=== PATIENT | female | born 1935 | race Caucasian/White ===

== ENCOUNTER 2017-08-11 08:11 | Inpatient (IN) | payer MEDICARE, OTHER, SELFPAY ==
[2017-08-11] VITALS (14 sets, daily range): BP systolic 107–126; BP diastolic 49–93; PULSE 87–125; RESP 13–27; TEMP 36.3–36.5; O2SAT 94–97; BMI 24.2; BMI 23.4
--- NOTE | 2017-08-11 08:27 | EKG12_ITS ---
Test Reason : ILLNESS Blood Pressure : / mmHG Vent. Rate : 096 BPM Atrial Rate : 075 BPM P-R Int : 000 ms QRS Dur : 142 ms QT Int : 366 ms P-R-T Axes : 000 -41 138 degrees QTc Int : 462 ms Atrial fibrillation Left axis deviation Left bundle branch block Abnormal ECG Confirmed by SUNDAR HENRY, LUIS ALFREDO ([id number]), features editor KIM PEREZ ([id number]) on 08/15/2017 1:21:11 PM Referred By: LESA Confirmed By:LUIS ALFREDO KWOK MD
--- NOTE | 2017-08-11 08:30 | RAD_ITS ---
STUDY: X-RAY CHEST REASON FOR EXAM: Female, 81 years old. Chest pain. History of uterine carcinoma. TECHNIQUE: Single AP portable view of the chest. COMPARISON: Comparison is made with prior study dated October 23, 2012. FINDINGS: EKG electrodes are seen. There now is evidence of a vascular congestion and mild degree of CHF. Mild increased markings are seen at the lung bases suggestive of atelectasis. There is blunting of both costophrenic angles. There is mild cardiac enlargement. Normal mediastinum and drake. Normal visualized pulmonary arteries. Normal visualized aortic arch and descending thoracic aorta. There is a levoscoliosis of the thoracic spine. Normal visualized ribs, clavicles, and shoulders. There is no demonstrated abnormality of the visualized soft tissue structures of the upper abdomen. RAD/Chest 1 View (Portable) IMPRESSION: Findings in keeping with a mild degree of CHF. Mild cardiomegaly. Electronically Signed: Luis Chaudhry MD at 8:56 EST Tel [phone], Service support ,
--- NOTE | 2017-08-11 08:33 | ED.DCSUM_ITS ---
- ER Visit Summary Date of Service: 08/11/17 Chief Complaint: Nausea vomiting and diarrhea History of Present Illness: The patient is a 81 F states she has not felt well for 1 week. Her primary care physician Dr. Geoffrey Jesus felt like she may have been in Atrial fib and started her on Eliquis. She states since that time she has not felt well. Last evening or this morning she started having nausea, vomiting and diarrhea. Denies any melena or hematemesis. Denies any fever. Denies any abdominal pain. She has had mild shortness of breath. She denies any chest pain or fever. Physical Examination: Older female no acute distress. Vital signs are stable she is tachycardic. Clinically she does look dehydrated. She does not look septic. She does not look toxic. H EENT exam dry mucous membranes. Neck nontender no lymphadenopathy. Lungs clear to auscultation bilaterally. Heart tachycardic and irregular. Abdomen is soft and nontender. Positive bowel sounds. She is moving all 4 extremities. They are neurovascularly intact. Nontender without edema. Neurologically she is awake and alert. Without focal motor deficits. Normal speech. Test Results: EKG is A. fib rate of 96 with left bundle branch block. Chest x- ray shows cardiomegaly with mild CHF. Mesenteric reflux was noted CBC shows a white count of 7. H&H 1136 she does have a baseline anemia with a hemoglobin average around 9. Electrolytes are unremarkable. Gap is 11. BUN 29 creatinine 1.36. Troponin and TSH are both normal. Repeat exam the patient is doing well currently at 09 35. Evaluate I will speak to the hospitalist about admission. Emergency Department Course and Treatment: Female with nausea, vomiting diarrhea which very well may be secondary to acute gastroenteritis which is started in the last 24 hours. However she is also not felt well for a week and she may have new onset A. fib. We treated with 1 L normal saline and IV Zofran for her nausea. Treatment Plan: The hospital is patient be admitted to the PCU for new onset A. fib and CHF. Disposition: Admitted Impression: Acute nausea, vomiting and diarrhea secondary to acute viral gastroenteritis New onset atrial fibrillation CHF This note was generated with [employer] dictation software. It may contain incorrect words, spelling, and punctuation that were not noted in review of the chart prior to signing ED Disposition - Plan for ED Patient: Chief Complaint: General Illness Referrals: Geoffrey Jesus MD [Primary Care Provider] -
[2017-08-11 08:40] LABS: Absolute Lymphocyte Count 0.91 X10^3/ul (0.83-4.51); Basophil# 0.03 X10^3/uL; Basophil% 0.4 % (0-1); Eosinophils% 2.8 % (0-5); Hematocrit 36.3 % (37-47); Hemoglobin 11.2 g/dl (12.0-15.0); Lymphocyte # 0.91 X10^3/ul (4.0); Lymphocyte % 12.7 % (19-41); Mean Corp Hgb Conc 30.9 g/gl (32-36); Mean Corpuscular Hgb 29.2 pg (27.0-32.0); Mean Corpuscular Volume 94.8 fL (81-99); Mean Platelet Vol. 10.3 fl (6.2-12.0); Monocyte# 0.94 X10^3/uL; Monocyte% 13.2 % (0-10); Neutrophil # 5.04 X10^3/uL (2.7-7.7); Neutrophil % 70.6 % (47-70); POSITIVE COUNT NO; POSITIVE DIFFERENTIAL NO; POSITIVE MORPHOLOGY NO; Platelet Count 237 K/mm3 (150-450); RBC Distribution Width CV 14.7 % (11.6-14.6); RBC Distribution Width SD 50.4 fl (35.1-43.9); Red Blood Count 3.83 M/mm3 (4.2-5.4); White Blood Count 7.1 K/mm3 (4.4-11.0)
[2017-08-11] MEDS: 0.9% Normal Saline 1,000 ML 1000 ML IV (08:43)
[2017-08-11] MEDS: Ondansetron 4 MG/2 ML Vial IV (08:43)
--- NOTE | 2017-08-11 09:00 | ED.RN ---
IV FLUIDS TURNED DOWN TO 100ML/HR PER DR MCFADDEN REQUEST
[2017-08-11 09:02] LABS: Anion Gap 11 (5-15); BUN 29 mg/dL (7-18); BUN/Creat Ratio 21.3 RATIO (10-20); Calcium,Total 8.5 mg/dL (8.5-10.1); Chloride 109 mmol/L (98-107); Creatinine, Serum 1.36 mg/dL (0.55-1.02); EST Glomerular Filtration Rate 40 mL/min (>60); Est Glom Filt Rate - Afr Amer 48 mL/min (>60); Estimated Creatinine Clearance 29.86 ml/min; Glucose 184 mg/dL (74-106); Potassium 4.9 mmol/L (3.5-5.1); Sodium Level 141 mmol/L (136-145); Thyroid Stim Hormone (TSH) 0.74 uIU/mL (0.358-3.74)
[2017-08-11] MEDS: 0.9% Normal Saline 250 ML IV.SOLN. 100 ML IV (09:09)
--- NOTE | 2017-08-11 09:56 | HP.PCM_ITS ---
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 Bleeding per rectum (Chronic) Collagenous colitis (Chronic) Anemia (Chronic) Allergies scopolamine Adverse Reaction (Verified 08/11/17 08:16) confusion Home Medications: Ambulatory Orders Medication Instructions Recorded Chlorthalidone [Hygroton] 25 mg PO DAILY PRN PRN 03/26/16 Cholecalciferol (VIT D3) [Vitamin 4,000 unit PO DAILY 03/26/16 D3] Fluoxetine [Prozac] 40 mg PO DAILY 03/26/16 Latanoprost 0.005% [Xalatan 1 drop EACH EYE QHS 03/26/16 Opthalmic] Potassium Citrate [Potassium 10 meq PO DAILY 03/26/16 Citrate ER] Timolol 0.5% [Timoptic] 1 drop EACH EYE QHS 03/26/16 Levothyroxine [Synthroid] 112 mcg PO DAILY 04/26/16 Bisacodyl [Dulcolax] 10 mg RECTAL DAILY PRN #30 suppos. 06/07/16 Hydrocodone Bitart/Apap 5-325 1 - 2 tablet PO Q6H PRN PRN #30 06/07/16 [[place] 5/325] tablet Lorazepam [Ativan] 1 mg PO BID #30 tablet 06/07/16 Nystatin Powder [Mycostatin Powder] 1 applic TOPICAL BID@0600,2200 #1 06/07/16 bottle Potassium Chloride [K-Dur] 10 meq PO DAILYCM #30 tablet 06/07/16 Ammonium Lactate [Amlactin] 3 gm TP DAILY 08/11/17 Apixaban [Eliquis] 2.5 mg PO BID 08/11/17 Bupropion HCl [Bupropion HCl Sr] 150 mg PO DAILY 08/11/17 Iron Polysaccharide Complex 325 mg PO DAILYCM 08/11/17 [Ferrex 150] Levocetirizine Dihydrochloride 5 mg PO DAILY PRN PRN 08/11/17 [Xyzal] Metoprolol Tartrate [Lopressor 25 mg PO BID 08/11/17 (Beta Marivel)] Triamcinolone Acetonide 15 gm TP BID PRN PRN 08/11/17 Surgical History: cataract - Bilateral., hysterectomy, total hip arthroplasty - Right., - - Breast biopsy Psychiatric History: No pertinent psych hx APPLICATIONS INTERN History: No pertinent APPLICATIONS INTERN history Smoking Status: Never smoker - *Family History Maternal History Items: No pertinent history Paternal History Items: No pertinent history - Physical Exam Vital Signs Temp Pulse Resp BP Pulse Ox 97.6 F L 93 13 110/87 H 96 08/11/17 08:13 08/11/17 09:12 08/11/17 09:12 08/11/17 09:12 08/11/17 09:12 Oxygen Delivery Method Room Air Weight: 149 lb 14.629 oz Body Mass Index (BMI) 24.2 Laboratory Tests Past 24 Hrs 08/11/17 08/11/17 08:27 08:27 WBC 7.1 RBC 3.83 L Hgb 11.2 L Hct 36.3 L MCV 94.8 MCH 29.2 MCHC 30.9 L RDW 14.7 H RDW Differential 50.4 H Plt Count 237 MPV 10.3 Immature Gran % (Auto) 0.300 Neut % (Auto) 70.6 H Lymph % (Auto) 12.7 L [place] % (Auto) 13.2 H Eos % (Auto) 2.8 Baso % (Auto) 0.4 Absolute Neuts (auto) 5.0 Absolute Lymphs (auto) 0.91 Total Counted Not Reportable Sodium 141 Potassium 4.9 Chloride 109 H Carbon Dioxide 21.0 Anion Gap 11 BUN 29 H Creatinine 1.36 H Estim Creat Clear Calc 29.86 Est GFR (MDRD) Af Amer 48 L Est GFR (MDRD) Non-Af 40 L BUN/Creatinine Ratio 21.3 H Glucose 184 H Calcium 8.5 Troponin I < 0.02 TSH 0.74
[2017-08-11] MEDS: Levothyroxine 100 MCG Tablet PO (11:45)
[2017-08-11] MEDS: APIXABAN 2.5 MG TABLET PO ×2 (11:45→22:16)
[2017-08-11] MEDS: LORazepam 1 MG Tablet PO ×2 (11:45→22:20)
[2017-08-11] MEDS: FLUoxetine 20 MG Capsule 40 MG PO (11:45)
[2017-08-11] MEDS: Metoprolol Tartrate 25 MG Tablet PO ×2 (11:45→22:15)
--- NOTE | 2017-08-11 16:58 | PCM.HP.STD ---
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 The patient is a 81 year old F who presents to the emergency room with shortness of breath, generalized weakness, diarrhea, nausea/vomiting. Patient states she has had generalized weakness for the most part of this winter. She is independent at home and states she has had difficulty running errands and doing other activities she normally does due to weakness. Patient was at primary care physician office approximately a week ago for routine visit when she was diagnosed with atrial fibrillation. Dr. Jesus, her primary care physician started her on Eliquis and metoprolol. Her rate was controlled at that time. Patient states she has been symptomatic since her diagnosis with increased weakness and shortness of breath. She complains of associated palpitations. She developed diarrhea, N/V this morning. She denies blood in stool. Complains of poor appetite which has been ongoing. Patient states she has had diarrhea in the past with blood thinners which she was prescribed following joint surgery. Patient states she has chronic anemia in which an etiology has not been determined. She states she required a transfusion following hip surgery in the past. She had colonoscopy which did not show any source of bleeding. She was diagnosed with colitis. Patient states she has intermittent diarrhea chronically. She denies chest pain. Denies fever, chills. Denies recent illness. 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 06/07/16 Potassium Chloride [K-Dur] 10 meq PO DAILYCM #30 tablet 06/07/16 Apixaban [Eliquis] 2.5 mg PO BID 08/11/17 Bupropion HCl [Bupropion HCl Sr] 150 mg PO BID 08/11/17 Iron Polysaccharide Complex 325 mg PO DAILYCM 08/11/17 [Ferrex 150] Levocetirizine Dihydrochloride 5 mg PO DAILY PRN PRN 08/11/17 [Xyzal] Lorazepam [Ativan] 1.5 mg PO BID PRN PRN 08/11/17 Metoprolol Tartrate [Lopressor 25 mg PO BID 08/11/17 (Beta Marivel)] Surgical History: cataract - Bilateral., hysterectomy, total hip arthroplasty - Right., - - Breast biopsy Psychiatric History: No pertinent psych hx EN[employer]CHITECT History: No pertinent ENTER[employer]ITY ARCHITECT history Lives: Alone Smoking Status: Never smoker Tobacco Use: Non-smoker Alcohol: Rare Drugs: None - *Family History Maternal History Items: Heart Disease Paternal History Items: Pulmonary Disease Review of Systems Constitutional: Reports: Weakness. Denies: Chills, Fever, Weight Change HEENT: Denies: Head Aches, Sinus Congestion, Sinus Drainage Cardiovascular: Reports: Palpitations. Denies: Chest Pain, Edema, Light Headedness, Syncope Respiratory: Reports: Shortness of Breath. Denies: Cough, Sputum production, Wheezing Gastrointestinal: Reports: Diarrhea, Nausea, Vomiting. Denies: Abdominal Pain, Constipation, Melena Genitourinary: Denies: Dysuria Musculoskeletal: Denies: Joint Pain, Joint Tenderness Skin: Denies: Rash, Wounds Neurological: Denies: Numbness, Tingling, Focal weakness Psychiatric: Reports: Anxiety. Denies: Depression, Homicidal Ideations, Suicidal Ideations Hematologic/ Lymphatic: Denies: Easy Bruising, Easy Bleeding VTE Information - Inpt Only VTE Present on Admission: No VTE Mechan Device Prophylaxis: None VTE Pharm Prophylaxis ordered?: Yes Patient Problems: Active and Suspected Problems Atrial fibrillation (Acute) - Physical Exam General: Alert, Oriented x3, Cooperative, No apparent distress HEENT: Atraumatic, PERRLA, EOMI, Normocephalic Oral: Dry Mucosa Neck: Supple, No JVD, Negative Carotid Bruits Lungs: Clear to auscultation, Diminished Cardiovascular: Regular rate, Normal S1, Normal S2, No murmurs, - - a.fib Abdomen: Bowel Sounds Present, Soft, Non Tender, Non-Distended Extremities: No clubbing, No cyanosis, No edema, Capillary Refill Less than 3 Seconds Skin: No rashes, No breakdown Musculoskeletal: No Tenderness to Palpation of Joints or Extremities Neurological: Cranial nerves II-XII grossly intact Psych/Mental Status: Normal Affect, Appropriate Vital Signs Temp Pulse Resp BP Pulse Ox 97.7 F L 98 18 117/49 L 97 08/11/17 16:45 08/11/17 16:45 08/11/17 16:45 08/11/17 16:45 08/11/17 16:45 Oxygen Delivery Method Room Air Weight: 65.9 kg Body Mass Index (BMI) 23.4 Intake and Output for Last 24 Hours 08/09/17 08/10/17 08/11/17 23:59 23:59 23:59 Intake Total 745 / 745 Balance 745 / 745 Assessment/Plan Active and Suspected Problems Atrial fibrillation (Acute) 1. New diagnosis atrial fibrillation-diagnosed by PCP approximately 1 week ago. Continue metoprolol and Eliquis. Patient was to follow-up with Dr. Mistry in the office today. Cardiology consulted. Rate is controlled. Patient had previous echocardiogram September 2012 which showed an EF of 60%. Patient had stress test February 2016 preoperatively which was normal. Repeat echocardiogram. Check BNP. Chest x-ray on admission showed mild degree of CHF. Patient's lungs are clear, no edema. TSH WNL. Patient states she has had diarrhea with blood thinners in the past when she has taken them post-operatively. Unsure if this is related or coincidence given history of intermittent diarrhea/hx of colitis. 2. Suspected acute viral gastroenteritis-IV fluids. Advance diet as tolerated. Zofran as needed for nausea. Stool for enteric pathogen. Patient has not had further diarrhea since this morning. Denies nausea, emesis at this time. 3. Chronic normochromic normocytic anemia-hemoglobin stable. Baseline hemoglobin appears to be 8-9. Hemoglobin currently 11.2. Continue iron supplementation. Check stool for occult blood. 4. Elevated creatinine secondary to dehydration as a result of #2-IV fluids, monitor BMP. 5. Elevated glucose- check hemoglobin HA1C. 5. History of collagenous colitis-history of intermittent diarrhea. Begin IV famotidine. Recommend discharge on PPI. 6. Hypothyroidism-continue Synthroid. TSH within normal limits. 7. Depression/anxiety-continue bupropion, fluoxetine, lorazepam regimen. Recommend tapering Ativan at discharge with eventual discontinuation. 8. Generalized weakness-PT/OT. Patient and family concerned for patient to return home alone. Consult case management. 9. History of TIA DVT prophylaxis-Beryl. This patient was seen by CINTHYA Benjamin under the supervision of Dr. Virgen.
--- NOTE | 2017-08-11 17:23 | ECHOD_ITS ---
Reason For Study: A. fib/flutter Procedure This was a 2D Doppler, Color Flow transthoracic echocardiogram. The exam was of adequate technical quality. Exam performed in department. Left Ventricle Normal LV size. Moderate segmental systolic dysfunction (see wall motion). The estimated ejection fraction is 30 %. Unable to assess diastolic dysfunction. Anterio-Basal: Hypokinetic. Infero-Basal: Akinetic. Basal inferoseptal: Hypokinetic. Basal anteroseptal: Hypokinetic. Mid-Anterior : Hypokinetic. Mid-Lateral : Hypokinetic. Mid-Posterior: Hypokinetic. Mid-Inferior: Akinetic. Mid- inferoseptal : Hypokinetic. Mid-anteroseptal : Hypokinetic. [place] : Hypokinetic. Right Ventricle Normal RV size. Normal systolic function. Atria The left atrium is moderately enlarged. The right atrium is moderately enlarged. No doppler evidence for ASD. Mitral Valve There is no mitral annular calcification. Mild diffuse mitral valve thickening. Mild papillary muscle dysfunction of the mitral valve. Mild-Moderate (1-2+) mitral valve insufficiency. Tricuspid Valve Normal tricuspid valve. Moderate (2+) tricuspid valve insufficiency. Right ventricular systolic pressure estimated to be 38 mmHg. Aortic Valve Trisinus/trileaflet aortic valve. Mild diffuse aortic valve thickening. Mild focal aortic valve calcification. Mild (1+) aortic valve insufficiency. Pulmonic Valve The pulmonic valve is not well visualized. Great Vessels Normal sized aortic root. Pericardium/Pleural No pericardial effusion. Echolucency c/w a pleural effusion. MMode/2D Measurements & Calculations LVIDd: 4.4 cm IVSd: 1.1 cm Ao root diam: 3.1 cm LVIDs: 3.7 cm LVPWd: 1.0 cm LA dimension: 4.8 cm RVDd: 3.3 cm FS: 15.8 % LAV(MOD-bp): 84.3 ml LA A4 area: 23.9 cm2 RA A4 area: 24.1 cm2 LAV(MOD-bp) Indexed: 48.3 ml/m2 LAV(MOD-sp2): 84.9 ml LAV(MOD-sp4): 80.2 ml Doppler Measurements & Calculations MV E max edie: 93.8 cm/sec Ao V2 max: 125.2 cm/sec AI max edie: 411.7 cm/sec Ao max P.3 mmHg AI max P.9 mmHg AI dec slope: 281.6 cm/sec2 AI P1/2t: 428.2 msec LV V1 max: 68.5 cm/sec PA V2 max: 49.2 cm/sec TR max edie: 239.9 cm/sec LV V1 max P.9 mmHg TR max P.4 mmHg Interpretation Summary Moderate segmental systolic dysfunction (see wall motion). The estimated ejection fraction is 30 %. The left atrium is moderately enlarged. The right atrium is moderately enlarged. Mild diffuse mitral valve thickening. Mild papillary muscle dysfunction of the mitral valve. Mild-Moderate (1-2+) mitral valve insufficiency. Moderate (2+) tricuspid valve insufficiency. Mild diffuse aortic valve thickening. Mild focal aortic valve calcification. Mild (1+) aortic valve insufficiency. Echolucency c/w a pleural effusion. Right ventricular systolic pressure estimated to be 38 mmHg. Unable to assess diastolic dysfunction. Ordering Physician: CINTHYA Benjamin Referring Physician: Geoffrey Jesus Performed By: Christina Calderon RDCS
[2017-08-11] MEDS: 0.9% Normal Saline 1,000 ML 75 ML IV (17:39)
[2017-08-11 19:20] LABS: Hemoglobin A1c 5.8 % (4.2-6.3)
[2017-08-11 19:52] LABS: BNP,B-Type NATRIURETIC PEPTIDE 1957.8 pg/mL (0-100)
--- NOTE | 2017-08-11 19:58 | CON.PCM_ITS ---
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 Based upon her most recent visit from 2015 she underwent subsequent evaluation with a transthoracic echocardiogram. The left ventricle was thought to be normal with an LVEF of 65 % with mild left atrial enlargement, mild MR, mild TR, mild diffuse aortic valve thickening with trivial AI, trivial W[place], and estimated RV systolic pressure of 30 mmHg, and decreased diastolic compliance. She also had a pharmacologic stress nuclear imaging study. Based upon the report her myocardial perfusion appear to be within normal limits. Her gated LVEF was 75% . She required no further cardiac evaluation or care at that time. She was subsequently proceeding for right total knee plasty which she apparently accomplished with no obvious adverse cardiovascular events. She notes recently she was being evaluated by her primary care physician. Her heart rate was thought to be irregular. An ECG was obtained. She was told she was in atrial fibrillation. She was placed on medical management with beta blockers and anticoagulants. She was referred back to cardiology for additional evaluation and care. In the interim she states that she has had nausea and diarrhea. She also has noted progressive shortness of breath. She states her dyspnea appears to wax and wane whether she is resting or exerting. She has not had classic orthopnea or PND. She has not developed any peripheral pitting edema. She has denied any chest discomfort. There is been no obvious near syncope or syncope. She was subsequently evaluated in the emergency department for her aforementioned symptoms. She was placed in the hospital for further evaluation and care. Her initial cardiac enzyme is negative. Her ECG demonstrated atrial fibrillation with a left axis deviation and a left bundle branch block pattern. The chest x-ray was performed. She appeared to have mild increase in her pulmonary vascularity and mild blunting of her costophrenic angles. [] Past Medical History Allergies/Adverse Reactions: Allergies scopolamine Adverse Reaction (Verified 08/11/17 08:16) confusion Home Medications: Ambulatory Orders Medication Instructions Recorded Cholecalciferol (VIT D3) [Vitamin 4,000 unit PO DAILY 03/26/16 D3] Fluoxetine [Prozac] 40 mg PO DAILY 03/26/16 Latanoprost 0.005% [Xalatan 1 drop EACH EYE QHS 03/26/16 Opthalmic] Timolol 0.5% [Timoptic] 1 drop EACH EYE BID 03/26/16 Levothyroxine [Synthroid] 100 mcg PO DAILY 04/26/16 Bisacodyl [Dulcolax] 10 mg RECTAL DAILY PRN #30 suppos. 06/07/16 Potassium Chloride [K-Dur] 10 meq PO DAILYCM #30 tablet 06/07/16 Apixaban [Eliquis] 2.5 mg PO BID 08/11/17 Bupropion HCl [Bupropion HCl Sr] 150 mg PO BID 08/11/17 Iron Polysaccharide Complex 325 mg PO DAILYCM 08/11/17 [Ferrex 150] Levocetirizine Dihydrochloride 5 mg PO DAILY PRN PRN 08/11/17 [Xyzal] Lorazepam [Ativan] 1.5 mg PO BID PRN PRN 08/11/17 Metoprolol Tartrate [Lopressor 25 mg PO BID 08/11/17 (Beta Marivel)] Past Medical History (Chronic Problems): Chronic Problems Abnormal electrocardiogram (Chronic) LBBB Dyspnea (Chronic) Hypothyroidism (Chronic) Osteoarthritis of left knee (Chronic) Osteoarthritis of right knee (Chronic) History of colitis (Chronic) microscopic colitis on biopsy of prev. colonoscopy Bleeding per rectum (Chronic) Collagenous colitis (Chronic) Anemia (Chronic) Surgical History: cataract - Bilateral., hysterectomy, total hip arthroplasty - Right., - - Breast biopsy Psychiatric History: No pertinent psych hx HEALTH EDUCATION DIRECTOR History: No pertinent HEALTH EDUCATION DIRECTOR history - *Family History Maternal History Items: Heart Disease Paternal History Items: Pulmonary Disease Lives: Alone Smoking Status: Never smoker Tobacco Use: Non-smoker Alcohol: Rare Drugs: None Review of Systems - Review of Systems General: Denies: Fever, Night Sweats, Fatigue Cardiovascular: Reports: Shortness of Breath. Denies: Chest Discomfort, Orthopnea, PND, Peripheral Edema, Palpitations, Lightheadedness, Dizziness, Near Syncope, Syncope Respiratory: Reports: Shortness of Breath. Denies: Cough, Sputum Production, Hemoptysis Gastrointestinal: Reports: Nausea, Diarrhea. Denies: Hematemesis, Hematochezia , Melena Genitourinary: Denies: Dysuria, Hematuria Skin: Denies: Rash Subjectve: This is an 81-year-old white female who appears to be resting reasonably comfortably in no acute distress. Objective: Vital Signs Temp Pulse Resp BP Pulse Ox 97.7 F L 98 18 117/49 L 97 08/11/17 16:45 08/11/17 16:45 08/11/17 16:45 08/11/17 16:45 08/11/17 16:45 Oxygen Delivery Method Room Air Weight: 145 lb 4.554 oz Body Mass Index (BMI) 23.4 Intake and Output for Last 24 Hours 08/09/17 08/10/17 08/11/17 23:59 23:59 23:59 Intake Total 1458.7 / 1458.7 Balance 1458.7 / 1458.7 General: Awake, Alert, Oriented x 3, Cooperative, No Acute Distress Neck: No JVD Lungs: Diminished Gregorio Bases Cardiovascular: Irregular Rhythm, Normal S1, Normal S2 Murmur Murmur: Grade 2/6, Soft, Mid Systolic, LLSB, LVOT Vascular: No Carotid Bruits Abdomen: Bowel Sounds Present, Soft, Non Tender Extremities: No Cyanosis, No Clubbing, No edema Rhythm: Atrial fibrillation EKG: As noted above ECHO: As noted above Stress Test: As noted above CXR: As noted above Assessment/Plan 1. Atrial fibrillation The patient now has atrial fibrillation. The exact duration is unknown although it has been demonstrated during her recent outpatient primary care evaluation. The etiology may be multifactorial. This may be related to a combination of age superimposed upon altering underlying cardiovascular disease versus noncardiac etiologies. From a cardiac standpoint she is continuing to be monitored. Her cardiac enzymes are being followed. Her ECG is noted. She is scheduled for an upcoming echocardiogram to reassess her atrial size and her ventricular wall motion and systolic function. It may not be unreasonable to reassess her coronary physiology with a follow-up pharmacologic stress nuclear imaging study as well to evaluate for any obvious evidence of myocardial ischemia not previously demonstrated that would require further evaluation and care. In the interim she is continuing medical management. This includes rate control therapy and anticoagulant therapy. Please she will tolerate anticoagulant therapy based upon her history of anemia thought related to her gastrointestinal process. Over time she may need to be considered for an attempt at regaining sinus rhythm. This may include antiarrhythmic therapy as well as an attempt at synchronized biphasic DC cardioversion. 2. Abnormal ECG/left bundle branch block pattern She does have an abnormal ECG with a left bundle branch block pattern. This is not a new diagnosis for her. However based upon her ongoing concerns it is reasonable to reassess her as noted above. 3. Dyspnea The patient has had concerns of shortness of breath/dyspnea. Is unclear whether this is a change in her atrial dysrhythmia with associated evidence of increased pulmonary vascularity and blunting of the costophrenic angles suggesting some volume retention. Thus it may be reasonable to not only continue to evaluate and treat her atrial dysrhythmia but also to consider additional medical therapy with diuresis and attempt to improve her pulmonary status and her symptoms. 4. Hypothyroidism Her thyroid levels have been evaluated. She will continue evaluation care as needed. 5. Anemia There is concern of her history of anemia. There is concern this is related to her gastrointestinal bleeding process. This will have to be followed with respect anticoagulant therapy. 6. Colitis His have a history of colitis. Again there is a concern whether she will tolerate anti-coagulant therapy based upon her previous history. She will need to be monitored for any obvious gastrointestinal bleeding process. The above was discussed with the patient. She was agreeable to this approach. The patient's case has also been discussed with Dr. Virgen. This note was generated with [employer] software. It may contain incorrect words, spelling, and punctuation that were not noted in checking the note before signing.
[2017-08-11] MEDS: Latanoprost 0.005% 1 Bottle 1 DRP EACH EYE (22:16)
[2017-08-11] MEDS: 0.9% NaCl Peripheral Flush Adult/Peds IV (22:20)
[2017-08-11] MEDS: Timolol 0.5% 5ML OPTH.BTL 1 DRP EACH EYE (22:20)
[2017-08-12] VITALS (12 sets, daily range): BP systolic 113–124; BP diastolic 69–74; PULSE 77–113; RESP 16–18; TEMP 36.3–36.6; O2SAT 94–97
[2017-08-12] MEDS: Levothyroxine 100 MCG Tablet PO (05:07)
--- NOTE | 2017-08-12 05:55 | EKG12_ITS ---
Test Reason : AM EKG Blood Pressure : / mmHG Vent. Rate : 094 BPM Atrial Rate : 105 BPM P-R Int : 000 ms QRS Dur : 136 ms QT Int : 430 ms P-R-T Axes : 000 -51 140 degrees QTc Int : 537 ms Atrial fibrillation Left axis deviation Left bundle branch block Abnormal ECG Confirmed by SUNDAR HENRY, LUIS ALFREDO ([id number]), video news editor KIM PEREZ ([id number]) on 08/15/2017 1:24:16 PM Referred By: THOMAS Confirmed By:LUIS ALFREDO KWOK MD
[2017-08-12 06:23] LABS: Hematocrit 33.7 % (37-47); Hemoglobin 10.8 g/dl (12.0-15.0); Mean Corpuscular Hgb 30.3 pg (27.0-32.0); Mean Corpuscular Volume 94.4 fL (81-99); Mean Platelet Vol. 10.2 fl (6.2-12.0); Platelet Count 208 K/mm3 (150-450); RBC Distribution Width CV 14.4 % (11.6-14.6); RBC Distribution Width SD 47.4 fl (35.1-43.9); Red Blood Count 3.57 M/mm3 (4.2-5.4); White Blood Count 5.4 K/mm3 (4.4-11.0)
[2017-08-12 06:25] LABS: International Normalized Ratio 1.7
[2017-08-12 06:26] LABS: Partial Thromboplast Time 34.7 Seconds (24.1-36.2); Scan Indicated on CBC? Y/N NO
[2017-08-12 07:24] LABS: Anion Gap 12 (5-15); BUN 30 mg/dL (7-18); BUN/Creat Ratio 22.7 RATIO (10-20); Calcium,Total 8.1 mg/dL (8.5-10.1); Chloride 109 mmol/L (98-107); Creatinine, Serum 1.32 mg/dL (0.55-1.02); EST Glomerular Filtration Rate 41 mL/min (>60); Est Glom Filt Rate - Afr Amer 49 mL/min (>60); Estimated Creatinine Clearance 30.76 ml/min; Glucose 100 mg/dL (74-106); Potassium 4.7 mmol/L (3.5-5.1); Sodium Level 138 mmol/L (136-145)
--- NOTE | 2017-08-12 08:12 | PN.CARD_ITS ---
Subjectve: The patient states she continues to feel somewhat short of breath. She has no new chest discomforts. Objective: Vital Signs Temp Pulse Resp BP Pulse Ox 97.9 F 97 16 113/69 94 08/12/17 04:09 08/12/17 06:53 08/12/17 04:09 08/12/17 04:09 08/12/17 04:09 Oxygen Delivery Method Room Air Weight: 145 lb 4.554 oz Body Mass Index (BMI) 23.4 Intake and Output for Last 24 Hours 08/10/17 08/11/17 08/12/17 23:59 23:59 23:59 Intake Total 1458.7 / 1458.7 550 / 550 Output Total 300 / 300 Balance 1458.7 / 1458.7 250 / 250 General: Awake, Alert, Oriented x 3, Cooperative, No Acute Distress Neck: No JVD Lungs: Diminished Gregorio Bases Cardiovascular: Irregular Rhythm, Normal S1, Normal S2 Murmur Murmur: Grade 2/6, Soft, Mid Systolic, LLSB, LVOT Abdomen: Bowel Sounds Present, Soft, Non Tender Extremities: No edema 08/12/17 05:55: WBC 5.4, RBC 3.57 L, Hgb 10.8 L, Hct 33.7 L, MCV 94.4, MCH 30.3 , MCHC 32.0, RDW 14.4, RDW Differential 47.4 H, Plt Count 208, MPV 10.2 08/12/17 05:55: Sodium 138, Potassium 4.7, Chloride 109 H, Carbon Dioxide 17.0 L , Anion Gap 12, BUN 30 H, Creatinine 1.32 H, Est GFR (MDRD) Af Amer 49 L, Est GFR (MDRD) Non-Af 41 L, BUN/Creatinine Ratio 22.7 H, Glucose 100, Calcium 8.1 L 08/12/17 05:55: PT 19.0 H, INR 1.7, APTT 34.7 Rhythm: Atrial fibrillation EKG: Atrial fibrillation; left bundle branch block pattern ECHO: Pending Stress Test: Pending Assessment/Plan 1. Atrial fibrillation The patient now has atrial fibrillation. The exact duration is unknown although it has been demonstrated during her recent outpatient primary care evaluation. The etiology may be multifactorial. This may be related to a combination of age superimposed upon altering underlying cardiovascular disease versus noncardiac etiologies. From a cardiac standpoint she is continuing to be monitored. Her cardiac enzymes are negative. Her ECG is significant change. She is scheduled for an upcoming echocardiogram to reassess her atrial size and her ventricular wall motion and systolic function. She is scheduled for a pharmacologic stress nuclear imaging study to reassess for any obvious evidence of ongoing coronary ischemia that would be contributing to her symptoms or findings. In the interim she is continuing medical management. This includes rate control therapy and anticoagulant therapy. Please she will tolerate anticoagulant therapy based upon her history of anemia thought related to her gastrointestinal process. Over time she may need to be considered for an attempt at regaining sinus rhythm. This may include antiarrhythmic therapy as well as an attempt at synchronized biphasic DC cardioversion. 2. Abnormal ECG/left bundle branch block pattern She does have an abnormal ECG with a left bundle branch block pattern. This is not a new diagnosis for her. However based upon her ongoing concerns it is reasonable to reassess her as noted above. 3. Dyspnea The patient has had concerns of shortness of breath/dyspnea. Is unclear whether this is a change in her atrial dysrhythmia with associated evidence of increased pulmonary vascularity and blunting of the costophrenic angles suggesting some volume retention. She is scheduled to receive diuretic therapy to see if this will improve her respiratory status. 4. Hypothyroidism Her thyroid levels have been evaluated. She will continue evaluation care as needed. 5. Anemia There is concern of her history of anemia. There is concern this is related to her gastrointestinal bleeding process. This will have to be followed with respect anticoagulant therapy. 6. Colitis His have a history of colitis. Again there is a concern whether she will tolerate anti-coagulant therapy based upon her previous history. She will need to be monitored for any obvious gastrointestinal bleeding process. The above was discussed with the patient. She was agreeable to this approach. The patient's case has also been previously discussed with Dr. Virgen. This note was generated with [employer] software. It may contain incorrect words, spelling, and punctuation that were not noted in checking the note before signing.
--- NOTE | 2017-08-12 11:18 | STRESSREP ---
Stress Test Report Pharmacologic myocardial perfusion stress test. 81-year-old lady with a history of atrial fibrillation and congestive heart failure. Stress protocol: Resting EKG demonstrates atrial fibrillation with a rate of 95 bpm and a left bundle branch block pattern. Blood pressure is 102/70 mmHg. 0.4 mg regadenoson was infused per usual protocol followed by rapid intravenous saline flush injection. Continuous EKG monitoring was performed. The patient maintained atrial for ablation throughout the recording. At rest there were no ST or T-wave changes noted suggest abnormal flow reserve left bundle branch block pattern persisted throughout. No chest pain changes were noted. Myocardial perfusion protocol. 12.0 mCi of technetium 99m sestamibi was injected at rest. 0.4 mg of regadenoson was infused per usual protocol. 0.4 mg regadenoson was then infused. At peak infusion 36.0 mCi of technetium 99m sestamibi was injected. Stress images were obtained. Stress and rest images were reconstructed and compared in the short axis vertical long and horizontal long axis. Gated images could not be obtained. Perfusion SPECT analysis. Review of the stress images demonstrate a normal cardiac silhouette size. There is significant GI attenuation artifact as well as some anterior breast attenuation artifact noted. This is present on the stress and resting images to a similar extent no overt ischemia is noted. No obvious is infarct is also present though this cannot be necessarily excluded. Conclusion: Pharmacologic myocardial perfusion stress test with no areas of overt ischemia present.
[2017-08-12] MEDS: Timolol 0.5% 5ML OPTH.BTL 1 DRP EACH EYE ×2 (11:19→22:37)
[2017-08-12] MEDS: FLUoxetine 20 MG Capsule 40 MG PO (11:20)
[2017-08-12] MEDS: APIXABAN 2.5 MG TABLET PO ×2 (11:20→22:36)
[2017-08-12] MEDS: Furosemide 40 MG/4 ML Vial IV (11:21)
[2017-08-12] MEDS: Metoprolol Tartrate 25 MG Tablet PO ×2 (11:21→22:36)
[2017-08-12] MEDS: 0.9% NaCl Peripheral Flush Adult/Peds IV ×3 (11:21→22:48)
[2017-08-12] MEDS: LORazepam 1 MG Tablet PO ×2 (11:23→22:38)
--- NOTE | 2017-08-12 14:43 | PCM.PROGNOTE ---
Patient Problems: Active and Suspected Problems Atrial fibrillation (Acute) Subjective: Patient seen and examined. Resting in bed in no acute distress. Underwent nuclear stress test this morning. She complains of continued shortness of breath. Denies chest pain, palpitations, dizziness. She is confused during assessment. Denies other complaints. - Physical Exam General: Alert, Cooperative, Confused HEENT: Atraumatic, PERRLA, EOMI, Normocephalic Neck: Supple, No JVD, Negative Carotid Bruits Lungs: Clear to auscultation, Diminished Cardiovascular: Normal S1, Normal S2, Murmur, - - Irregular rhythm Abdomen: Bowel Sounds Present, Soft, Non Tender, Non-Distended Extremities: No clubbing, No cyanosis, No edema, Capillary Refill Less than 3 Seconds Skin: No rashes, No breakdown Musculoskeletal: No Tenderness to Palpation of Joints or Extremities Neurological: Cranial nerves II-XII grossly intact, Neuro grossly intact Psych/Mental Status: Normal Affect, Appropriate Vital Signs Temp Pulse Resp BP Pulse Ox 97.6 F L 93 18 124/70 H 95 08/12/17 11:15 08/12/17 11:21 08/12/17 11:15 08/12/17 11:21 08/12/17 11:15 Oxygen Delivery Method Room Air Weight: 65.9 kg Body Mass Index (BMI) 23.4 Intake and Output for Last 24 Hours 08/10/17 08/11/17 08/12/17 23:59 23:59 23:59 Intake Total 1458.7 / 1458.7 670 / 670 Output Total 300 / 300 Balance 1458.7 / 1458.7 370 / 370 Laboratory Tests Past 24 Hrs 08/12/17 08/12/17 08/12/17 05:55 05:55 05:55 WBC 5.4 RBC 3.57 L Hgb 10.8 L Hct 33.7 L MCV 94.4 MCH 30.3 MCHC 32.0 RDW 14.4 RDW Differential 47.4 H Plt Count 208 MPV 10.2 PT 19.0 H INR 1.7 APTT 34.7 Sodium 138 Potassium 4.7 Chloride 109 H Carbon Dioxide 17.0 L Anion Gap 12 BUN 30 H Creatinine 1.32 H Estim Creat Clear Calc 30.76 Est GFR (MDRD) Af Amer 49 L Est GFR (MDRD) Non-Af 41 L BUN/Creatinine Ratio 22.7 H Glucose 100 Calcium 8.1 L Assessment/Plan Active and Suspected Problems Atrial fibrillation (Acute) Patient is an 81-year-old female admitted 08/11/17 due to new diagnosis atrial fibrillation symptomatic with shortness of breath. She has a past medical history of colitis, hypothyroidism, depression, anxiety, TIA, left bundle branch block. 1. New diagnosis atrial fibrillation-diagnosed by PCP approximately 1 week ago. Continue metoprolol and Eliquis. Cardiology consulted. Patient had previous echocardiogram September 2012 which showed an EF of 60%. Repeat echocardiogram during admission shows an estimated ejection fraction of 30%, mild to moderate mitral valve insufficiency, moderate tricuspid valve insufficiency, RVSP estimated to be 33 mmHg. Patient underwent nuclear stress test 08/12/17 which was negative for ischemia. Possible cardiac catheterization in the future. Per cardiology, patient may be started on antiarrhythmic therapy or cardioversion in the future. Rate has continued to be controlled. 2. Acute systolic CHF-no previous diagnosis. BNP 1956. Echo with EF of 30% as noted above. Chest x-ray on admission consistent with CHF. Continue IV Lasix. Possible cardiac catheterization in the future to rule out CAD as cause of significant decrease in EF. 3. History of colitis-Patient has not had any further diarrhea, nausea, vomiting since admission. Low suspicion for viral gastroenteritis. Patient is tolerating regular diet. Continue to monitor. EGD/colonoscopy in April 2016 showed microscopic colitis. No active bleeding. 4. Chronic normochromic normocytic anemia-hemoglobin stable. Baseline hemoglobin appears to be 8-9. Hemoglobin currently 11.2. Continue iron supplementation. Check stool for occult blood. 5. Elevated creatinine-suspect secondary to dehydration as a result of poor oral intake and nausea, diarrhea prior to admission. Stable, continue to monitor. 6. Elevated glucose-hemoglobin A1c 5.8%. 7. Hypothyroidism-continue Synthroid. TSH within normal limits. 8. Depression/anxiety-continue bupropion, fluoxetine, lorazepam regimen. Recommend tapering Ativan at discharge with eventual discontinuation. 9. Generalized weakness-PT/OT. Patient and family concerned for patient to return home alone. Patient refused physical therapy today. 10. History of TIA 11. Altered mental status-daughter at bedside states patient is not normally confused. ABG pending. DVT prophylaxis-Eliquis. This patient was seen by CINTHYA Benjamin under the supervision of Dr. Virgen.
--- NOTE | 2017-08-12 15:25 | CASEMGMT ---
Face to Face with patient for initial transition planning/care coordination assessment. RN BLADE introduced self and role at [facility], pt/daughter voice understanding and consent to assessment at this time. Pt is lying in bed in no distress at this time. Pt A/O x2 at this time and daughter answers all questions at this time. Care providers, pharmacy, and demographics verified. See attached link. Pt voices no further concerns/needs at this time. Advised pt to ask for CM if any further questions/concerns/needs arise, voices understanding. CM to follow for any further discharge planning/needs. PLAN: TBD Skinny RN BLADE
[2017-08-12] MEDS: Haloperidol Lactate 5 MG/ML Vial 2 MG IM (16:14)
[2017-08-12] MEDS: Latanoprost 0.005% 1 Bottle 1 DRP EACH EYE (22:37)
[2017-08-12 23:24] LABS: Anion Gap 13 (5-15); BUN 36 mg/dL (7-18); BUN/Creat Ratio 20.1 RATIO (10-20); Calcium,Total 8.4 mg/dL (8.5-10.1); Chloride 108 mmol/L (98-107); Creatinine, Serum 1.79 mg/dL (0.55-1.02); EST Glomerular Filtration Rate 29 mL/min (>60); Est Glom Filt Rate - Afr Amer 35 mL/min (>60); Estimated Creatinine Clearance 22.68 ml/min; Glucose 129 mg/dL (74-106); Potassium 4.6 mmol/L (3.5-5.1); Sodium Level 140 mmol/L (136-145)
[2017-08-12 23:35] LABS: Lactic Acid 2.9 mmol/L (0.4-2.0)
[2017-08-12 23:42] LABS: Blood Gas Specimen Type VEN; O2 Delivery Device Room Air; SITE OTHER; Time Given 2345; VBG BASE EXCESS -5 mmol/L (-1.0-3.5); VBG Bicarbonate 20 mmol/L (22-26); VBG Oxygen Content 21 mmol/L (23-33); VBG PO2 75 mmHg (25-40); VBG SO2 95 % (50-70); VBG pH 7.38 (7.32-7.42)
[2017-08-13] VITALS (11 sets, daily range): BP systolic 106–111; BP diastolic 51–83; PULSE 74–116; RESP 14–22; TEMP 36.5–36.8; O2SAT 93–98
[2017-08-13 00:17] LABS: Magnesium 2.1 mg/dL (1.6-2.6)
[2017-08-13 02:57] LABS: Reflex Lactate? Y
[2017-08-13 04:02] LABS: Absolute Lymphocyte Count 0.65 X10^3/ul (0.83-4.51); Absolute Neutrophil Count 6.2 X10^3/uL (2.0-7.7); Basophil# 0.04 X10^3/uL; Basophil% 0.5 % (0-1); Eosinophil# 0.09 X10^3/uL; Eosinophils% 1.1 % (0-5); Hematocrit 35.4 % (37-47); Hemoglobin 11.3 g/dl (12.0-15.0); Lymphocyte # 0.65 X10^3/ul (4.0); Lymphocyte % 8.3 % (19-41); Mean Corp Hgb Conc 31.9 g/gl (32-36); Mean Corpuscular Hgb 29.6 pg (27.0-32.0); Mean Corpuscular Volume 92.7 fL (81-99); Mean Platelet Vol. 10.3 fl (6.2-12.0); Monocyte# 0.86 X10^3/uL; Neutrophil # 6.17 X10^3/uL (2.7-7.7); Neutrophil % 78.8 % (47-70); Platelet Count 225 K/mm3 (150-450); RBC Distribution Width CV 14.4 % (11.6-14.6); RBC Distribution Width SD 47.2 fl (35.1-43.9); Red Blood Count 3.82 M/mm3 (4.2-5.4); White Blood Count 7.8 K/mm3 (4.4-11.0)
[2017-08-13 04:03] LABS: POSITIVE COUNT NO; POSITIVE DIFFERENTIAL NO; POSITIVE MORPHOLOGY NO
[2017-08-13 04:23] LABS: Anion Gap 13 (5-15); BUN 37 mg/dL (7-18); BUN/Creat Ratio 21.9 RATIO (10-20); Calcium,Total 8.4 mg/dL (8.5-10.1); Chloride 109 mmol/L (98-107); Creatinine, Serum 1.69 mg/dL (0.55-1.02); EST Glomerular Filtration Rate 31 mL/min (>60); Est Glom Filt Rate - Afr Amer 37 mL/min (>60); Estimated Creatinine Clearance 24.03 ml/min; Glucose 124 mg/dL (74-106); Potassium 4.4 mmol/L (3.5-5.1); Sodium Level 140 mmol/L (136-145)
[2017-08-13 04:53] LABS: Lactic Acid 1.8 mmol/L (0.4-2.0)
--- NOTE | 2017-08-13 05:55 | RAD_ITS ---
STUDY: X-RAY CHEST REASON FOR EXAM: Female, 81 years old. CHF. TECHNIQUE: Single AP portable upright view of the chest. The patient is mildly rotated to the left. COMPARISON: Portable AP upright chest x-ray August 11, 2017. FINDINGS: The lungs again are under expanded, and there is persistent medial basilar subsegmental atelectasis. Small pleural reaction blunts the lateral left costophrenic sulcus, and there is minor thickening along the right pleural fissures. There is stable mild cardiac enlargement. Normal mediastinum. Persistent perihilar prominence of the pulmonary vascular markings consistent with mild venous congestion, likely augmented by crowding. Normal visualized aortic arch and descending thoracic aorta. There are stable degenerative changes of the lower thoracic spine. Normal visualized ribs, clavicles, and shoulders. There is no demonstrated abnormality of the visualized soft tissue structures of the upper abdomen. RAD/Chest 1 View (Portable) IMPRESSION: 1. Grossly stable x-ray examination of the chest, as noted. 2. Stable cardiac enlargement. The appearance of central pulmonary vascular congestion is likely augmented by crowding. 3. Central bibasilar subsegmental atelectasis and minimal pleural effusions also again noted. Electronically Signed: Agustin Izquierdo MD at 9:21 EST , Service support ,
[2017-08-13] MEDS: Levothyroxine 100 MCG Tablet PO (06:07)
--- NOTE | 2017-08-13 09:48 | PCM.PN.CARD ---
Subjectve: The patient is awake. However she still appears somewhat confused with respect to time and place. She believes her breathing is somewhat improved. Objective: Vital Signs Temp Pulse Resp BP Pulse Ox 97.7 F L 74 16 108/83 H 93 08/13/17 03:13 08/13/17 07:40 08/13/17 03:13 08/13/17 03:13 08/13/17 03:13 Oxygen Delivery Method Room Air Intake and Output for Last 24 Hours 08/11/17 08/12/17 08/13/17 23:59 23:59 23:59 Intake Total 240 / 910 200 / 200 Balance 240 / 610 200 / 200 General: Awake, No Acute Distress, Disoriented Neck: No JVD Lungs: Diminished Gregorio Bases - Improved compared to previous evaluation Cardiovascular: Irregular Rhythm, Normal S1, Normal S2 Murmur Murmur: Grade 2/6, Soft, Mid Systolic, LLSB, LVOT Abdomen: Bowel Sounds Present, Soft, Non Tender Extremities: No edema 08/12/17 22:44: Sodium 140, Potassium 4.6, Chloride 108 H, Carbon Dioxide 19.0 L, Anion Gap 13, BUN 36 H, Creatinine 1.79 H, Est GFR (MDRD) Af Amer 35 L, Est GFR (MDRD) Non-Af 29 L, BUN/Creatinine Ratio 20.1 H, Glucose 129 H, Calcium 8.4 L 08/12/17 22:44: Lactic Acid 2.9 H 08/12/17 22:44: Magnesium 2.1 08/12/17 23:35: VBG pH 7.38, VBG pO2 75 H, VBG O2 Sat (Calc) 95 H, VBG O2 Content 21 L, VBG Base Excess -5 L 08/13/17 03:40: Sodium 140, Potassium 4.4, Chloride 109 H, Carbon Dioxide 18.0 L, Anion Gap 13, BUN 37 H, Creatinine 1.69 H, Est GFR (MDRD) Af Amer 37 L, Est GFR (MDRD) Non-Af 31 L, BUN/Creatinine Ratio 21.9 H, Glucose 124 H, Calcium 8.4 L 08/13/17 03:40: WBC 7.8, RBC 3.82 L, Hgb 11.3 L, Hct 35.4 L, MCV 92.7, MCH 29.6, MCHC 31.9 L, RDW 14.4, RDW Differential 47.2 H, Plt Count 225, MPV 10.3, Immature Gran % (Auto) 0.300, Neut % (Auto) 78.8 H, Lymph % (Auto) 8.3 L, [place] % (Auto) 11.0 H, Eos % (Auto) 1.1, Baso % (Auto) 0.5, Absolute Neuts (auto) 6.2, Total Counted Not Reportable 08/13/17 03:40: Lactic Acid 1.8 Rhythm: Atrial fibrillation Assessment/Plan 1. Atrial fibrillation The patient now has atrial fibrillation. The exact duration is unknown although it has been demonstrated during her recent outpatient primary care evaluation. The etiology may be multifactorial. This may be related to the patient's age as well as her recent findings, based on her echocardiogram, of diminished LV systolic function. At the same time there is concern as to whether or not her diminished LV systolic function may be related to a history of underlying atrial fibrillation with tachycardia and a tachycardic induced cardiomyopathy. From a cardiac standpoint she is continuing to be monitored. Her cardiac enzymes are negative. Her echocardiogram is as previously noted. Her pharmacologic stress nuclear imaging study was reported as negative for ongoing myocardial ischemia. She has continued rate control therapy and anticoagulant therapy. 2. Abnormal ECG/left bundle branch block pattern She does have an abnormal ECG with a left bundle branch block pattern. This is not a new diagnosis for her. However based upon her ongoing concerns it is reasonable to reassess her as noted above. 3. CHF She does have the appearance of underlying CHF based upon her history, exam, and her objective studies with her BNP level. She also has been found to have an echocardiogram with diminished LV systolic function compared to her prior studies. She has initiated medical therapy with diuretics. She believes her breathing is somewhat improved. Her examination appears to be somewhat improved. She will need medical management going forward. Ideally this would include agents such as beta blockers, diuretics, and afterload reducing agents, etc. 4. Cardiomyopathy He does have findings compatible with a cardiomyopathy. It is unclear whether this is atrial fibrillation/tachycardic induced or whether this is related to another non-CAD etiology or despite her pharmacologic stress nuclear imaging study results underlying CAD. As an time she will continue medical management as deemed appropriate. Ideally it may be reasonable consider, despite her pharmacologic stress nuclear imaging results, further evaluation with diagnostic cardiac catheterization. However this may be challenging with respect to her mental status changes and inability to cooperate with her medical evaluation and care. Thus she may be destined for continued conservative medical management. 5. Hypothyroidism Her thyroid levels have been evaluated. She will continue evaluation care as needed. 6. Anemia There is concern of her history of anemia. There is concern this is related to her gastrointestinal bleeding process. This will have to be followed with respect anticoagulant therapy. 7. Colitis His have a history of colitis. Again there is a concern whether she will tolerate anti-coagulant therapy based upon her previous history. She will need to be monitored for any obvious gastrointestinal bleeding process. The patient's case has also been previously discussed with Dr. Virgen. This note was generated with [employer] dictation software. It may contain incorrect words, spelling, and punctuation that were not noted in checking the note before signing.
--- NOTE | 2017-08-13 09:54 | PN.CARD_ITS ---
Subjectve: The patient is awake. However she still appears somewhat confused with respect to time and place. She believes her breathing is somewhat improved. Objective: Vital Signs Temp Pulse Resp BP Pulse Ox 97.7 F L 74 16 108/83 H 93 08/13/17 03:13 08/13/17 07:40 08/13/17 03:13 08/13/17 03:13 08/13/17 03:13 Oxygen Delivery Method Room Air Intake and Output for Last 24 Hours 08/11/17 08/12/17 08/13/17 23:59 23:59 23:59 Intake Total 240 / 910 200 / 200 Balance 240 / 610 200 / 200 General: Awake, No Acute Distress, Disoriented Neck: No JVD Lungs: Diminished Gregorio Bases - Improved compared to previous evaluation Cardiovascular: Irregular Rhythm, Normal S1, Normal S2 Murmur Murmur: Grade 2/6, Soft, Mid Systolic, LLSB, LVOT Abdomen: Bowel Sounds Present, Soft, Non Tender Extremities: No edema 08/12/17 22:44: Sodium 140, Potassium 4.6, Chloride 108 H, Carbon Dioxide 19.0 L , Anion Gap 13, BUN 36 H, Creatinine 1.79 H, Est GFR (MDRD) Af Amer 35 L, Est GFR (MDRD) Non-Af 29 L, BUN/Creatinine Ratio 20.1 H, Glucose 129 H, Calcium 8.4 L 08/12/17 22:44: Lactic Acid 2.9 H 08/12/17 22:44: Magnesium 2.1 08/12/17 23:35: VBG pH 7.38, VBG pO2 75 H, VBG O2 Sat (Calc) 95 H, VBG O2 Content 21 L, VBG Base Excess -5 L 08/13/17 03:40: Sodium 140, Potassium 4.4, Chloride 109 H, Carbon Dioxide 18.0 L , Anion Gap 13, BUN 37 H, Creatinine 1.69 H, Est GFR (MDRD) Af Amer 37 L, Est GFR (MDRD) Non-Af 31 L, BUN/Creatinine Ratio 21.9 H, Glucose 124 H, Calcium 8.4 L 08/13/17 03:40: WBC 7.8, RBC 3.82 L, Hgb 11.3 L, Hct 35.4 L, MCV 92.7, MCH 29.6 , MCHC 31.9 L, RDW 14.4, RDW Differential 47.2 H, Plt Count 225, MPV 10.3, Immature Gran % (Auto) 0.300, Neut % (Auto) 78.8 H, Lymph % (Auto) 8.3 L, [place] % (Auto) 11.0 H, Eos % (Auto) 1.1, Baso % (Auto) 0.5, Absolute Neuts (auto) 6.2 , Total Counted Not Reportable 08/13/17 03:40: Lactic Acid 1.8 Rhythm: Atrial fibrillation Assessment/Plan 1. Atrial fibrillation The patient now has atrial fibrillation. The exact duration is unknown although it has been demonstrated during her recent outpatient primary care evaluation. The etiology may be multifactorial. This may be related to the patient's age as well as her recent findings, based on her echocardiogram, of diminished LV systolic function. At the same time there is concern as to whether or not her diminished LV systolic function may be related to a history of underlying atrial fibrillation with tachycardia and a tachycardic induced cardiomyopathy. From a cardiac standpoint she is continuing to be monitored. Her cardiac enzymes are negative. Her echocardiogram is as previously noted. Her pharmacologic stress nuclear imaging study was reported as negative for ongoing myocardial ischemia. She has continued rate control therapy and anticoagulant therapy. 2. Abnormal ECG/left bundle branch block pattern She does have an abnormal ECG with a left bundle branch block pattern. This is not a new diagnosis for her. However based upon her ongoing concerns it is reasonable to reassess her as noted above. 3. CHF She does have the appearance of underlying CHF based upon her history, exam, and her objective studies with her BNP level. She also has been found to have an echocardiogram with diminished LV systolic function compared to her prior studies. She has initiated medical therapy with diuretics. She believes her breathing is somewhat improved. Her examination appears to be somewhat improved. She will need medical management going forward. Ideally this would include agents such as beta blockers, diuretics, and afterload reducing agents, etc. 4. Cardiomyopathy He does have findings compatible with a cardiomyopathy. It is unclear whether this is atrial fibrillation/tachycardic induced or whether this is related to another non-CAD etiology or despite her pharmacologic stress nuclear imaging study results underlying CAD. As an time she will continue medical management as deemed appropriate. Ideally it may be reasonable consider, despite her pharmacologic stress nuclear imaging results, further evaluation with diagnostic cardiac catheterization. However this may be challenging with respect to her mental status changes and inability to cooperate with her medical evaluation and care. Thus she may be destined for continued conservative medical management. 5. Hypothyroidism Her thyroid levels have been evaluated. She will continue evaluation care as needed. 6. Anemia There is concern of her history of anemia. There is concern this is related to her gastrointestinal bleeding process. This will have to be followed with respect anticoagulant therapy. 7. Colitis His have a history of colitis. Again there is a concern whether she will tolerate anti-coagulant therapy based upon her previous history. She will need to be monitored for any obvious gastrointestinal bleeding process. The patient's case has also been previously discussed with Dr. Virgen. This note was generated with [employer] dictation software. It may contain incorrect words, spelling, and punctuation that were not noted in checking the note before signing.
[2017-08-13] MEDS: APIXABAN 2.5 MG TABLET PO ×2 (10:48→22:35)
[2017-08-13] MEDS: LORazepam 1 MG Tablet PO ×2 (10:48→22:39)
[2017-08-13] MEDS: Metoprolol Tartrate 25 MG Tablet PO ×2 (10:49→22:34)
[2017-08-13] MEDS: Furosemide 40 MG/4 ML Vial IV (10:49)
[2017-08-13] MEDS: FLUoxetine 20 MG Capsule 40 MG PO (10:50)
[2017-08-13] MEDS: 0.9% NaCl Peripheral Flush Adult/Peds IV (10:51)
--- NOTE | 2017-08-13 10:55 | CASEMGMT ---
FARIDA MURGUIA notified that patient's dtr was here and wanted to give choices for care home placement. FARIDA MURGUIA met with patient's dtr who states TCU is first choice and [facility] is second choice. FARIDA MURGUIA notified psychiatric social worker supervisor via VMM of patient and patient's family choice.
--- NOTE | 2017-08-13 12:08 | PN_ITS ---
<Aimee Nye - Last Filed: 08/13/17 12:08> Patient Problems: Active and Suspected Problems Atrial fibrillation (Acute) Subjective: Patient seen and examined. Alert and oriented this morning. Daughter at bedside states patient's mental status is much better but that she is still been slightly confused in conversation. Daughter is concerned for patient returning home and is interested in TCU. Patient states shortness of breath is improved. Denies chest pain. Denies other complaints. - Physical Exam General: Alert, Oriented x3, Cooperative, No apparent distress HEENT: Atraumatic, PERRLA, EOMI, Normocephalic Neck: Supple, No JVD, Negative Carotid Bruits Lungs: Clear to auscultation, Diminished Cardiovascular: Normal S1, Normal S2, Murmur, - - Atrial fibrillation, rate controlled. Abdomen: Bowel Sounds Present, Soft, Non Tender, Non-Distended Extremities: No clubbing, No cyanosis, No edema, Capillary Refill Less than 3 Seconds Skin: No rashes, No breakdown Musculoskeletal: No Tenderness to Palpation of Joints or Extremities Neurological: Cranial nerves II-XII grossly intact, Neuro grossly intact Psych/Mental Status: Normal Affect, Appropriate Vital Signs Temp Pulse Resp BP Pulse Ox 97.7 F L 81 16 106/61 93 08/13/17 03:13 08/13/17 10:49 08/13/17 03:13 08/13/17 10:49 08/13/17 03:13 Oxygen Delivery Method Room Air Intake and Output for Last 24 Hours 08/11/17 08/12/17 08/13/17 23:59 23:59 23:59 Intake Total 240 / 910 200 / 200 Balance 240 / 610 200 / 200 Laboratory Tests Past 24 Hrs 08/12/17 08/12/17 08/12/17 22:44 22:44 22:44 WBC RBC Hgb Hct MCV MCH MCHC RDW RDW Differential Plt Count MPV Immature Gran % (Auto) Neut % (Auto) Lymph % (Auto) [place] % (Auto) Eos % (Auto) Baso % (Auto) Absolute Neuts (auto) Absolute Lymphs (auto) Total Counted Specimen Type Sample Site VBG pH VBG pO2 VBG O2 Sat (Calc) VBG O2 Content VBG Base Excess POC Mix VBG pCO2 Pt Tmp O2 Delivery Device Blood Gas Notified Whom Blood Gas Notified Time Sodium 140 Potassium 4.6 Chloride 108 H Carbon Dioxide 19.0 L Anion Gap 13 BUN 36 H Creatinine 1.79 H Estim Creat Clear Calc 22.68 Est GFR (MDRD) Af Amer 35 L Est GFR (MDRD) Non-Af 29 L BUN/Creatinine Ratio 20.1 H Glucose 129 H Lactic Acid 2.9 H Calcium 8.4 L Magnesium 2.1 08/12/17 08/13/17 08/13/17 23:35 03:40 03:40 WBC 7.8 RBC 3.82 L Hgb 11.3 L Hct 35.4 L MCV 92.7 MCH 29.6 MCHC 31.9 L RDW 14.4 RDW Differential 47.2 H Plt Count 225 MPV 10.3 Immature Gran % (Auto) 0.300 Neut % (Auto) 78.8 H Lymph % (Auto) 8.3 L [place] % (Auto) 11.0 H Eos % (Auto) 1.1 Baso % (Auto) 0.5 Absolute Neuts (auto) 6.2 Absolute Lymphs (auto) 0.65 L Total Counted Not Reportable Specimen Type KAMAR Sample Site OTHER VBG pH 7.38 VBG pO2 75 H VBG O2 Sat (Calc) 95 H VBG O2 Content 21 L VBG Base Excess -5 L POC Mix VBG pCO2 Pt Tmp 34.0 L O2 Delivery Device Room Air Blood Gas Notified Whom RN Blood Gas Notified Time 2345 Sodium 140 Potassium 4.4 Chloride 109 H Carbon Dioxide 18.0 L Anion Gap 13 BUN 37 H Creatinine 1.69 H Estim Creat Clear Calc 24.03 Est GFR (MDRD) Af Amer 37 L Est GFR (MDRD) Non-Af 31 L BUN/Creatinine Ratio 21.9 H Glucose 124 H Lactic Acid Calcium 8.4 L Magnesium 08/13/17 03:40 WBC RBC Hgb Hct MCV MCH MCHC RDW RDW Differential Plt Count MPV Immature Gran % (Auto) Neut % (Auto) Lymph % (Auto) [place] % (Auto) Eos % (Auto) Baso % (Auto) Absolute Neuts (auto) Absolute Lymphs (auto) Total Counted Specimen Type Sample Site VBG pH VBG pO2 VBG O2 Sat (Calc) VBG O2 Content VBG Base Excess POC Mix VBG pCO2 Pt Tmp O2 Delivery Device Blood Gas Notified Whom Blood Gas Notified Time Sodium Potassium Chloride Carbon Dioxide Anion Gap BUN Creatinine Estim Creat Clear Calc Est GFR (MDRD) Af Amer Est GFR (MDRD) Non-Af BUN/Creatinine Ratio Glucose Lactic Acid 1.8 Calcium Magnesium Assessment/Plan Active and Suspected Problems Atrial fibrillation (Acute) Patient is an 81-year-old female admitted 08/11/17 due to new diagnosis atrial fibrillation symptomatic with shortness of breath. She has a past medical history of colitis, hypothyroidism, depression, anxiety, TIA, left bundle branch block. 1. New diagnosis atrial fibrillation-diagnosed by PCP approximately 1 week ago. Continue metoprolol and Eliquis. Cardiology consulted. Patient had previous echocardiogram September 2012 which showed an EF of 60%. Repeat echocardiogram during admission shows an estimated ejection fraction of 30%, mild to moderate mitral valve insufficiency, moderate tricuspid valve insufficiency, RVSP estimated to be 33 mmHg. Patient underwent nuclear stress test 08/12/17 which was negative for ischemia. Possible cardiac catheterization in the future. Per cardiology, patient may be started on antiarrhythmic therapy or cardioversion in the future. Rate has continued to be controlled. 2. Acute systolic CHF-no previous diagnosis. BNP 1956. Echo with EF of 30% as noted above. Chest x-ray consistent with CHF. Continue IV Lasix. Possible cardiac catheterization in the future to rule out CAD as cause of significant decrease in EF. 3. History of colitis-Patient has not had any further diarrhea, nausea, vomiting since admission. Low suspicion for viral gastroenteritis. Patient is tolerating regular diet. Continue to monitor. EGD/colonoscopy in April 2016 showed microscopic colitis. No active bleeding. 4. Chronic normochromic normocytic anemia-hemoglobin stable. Baseline hemoglobin appears to be 8-9. Hemoglobin currently 11.3. Continue iron supplementation. 5. Elevated creatinine-appears somewhat chronic in nature. Baseline 1.1-1.3. Monitor BMP. 6. Elevated glucose-hemoglobin A1c 5.8%. 7. Hypothyroidism-continue Synthroid. TSH within normal limits. 8. Depression/anxiety-continue bupropion, fluoxetine, lorazepam regimen. Recommend tapering Ativan at discharge with eventual discontinuation. 9. Generalized weakness-PT/OT. Patient and family concerned for patient to return home alone. Physical therapy evaluation pending. 10. History of TIA 11. Altered mental status-etiology unclear. Suspect underlying dementia as patient responded well to IM Haldol last night. Mental status improved this morning. DVT prophylaxis-Eliquis. Discharge planning- Pending pre-cert. Anticipate discharge to TCU tuesday. This patient was seen by CINTHYA Benjamin under the supervision of Dr. Boles. <Claritza Boles - Last Filed: 08/13/17 14:54> - Physical Exam Vital Signs Temp Pulse Resp BP Pulse Ox 97.9 F 81 16 106/61 98 08/13/17 09:10 08/13/17 10:49 08/13/17 09:10 08/13/17 10:49 08/13/17 09:10 Oxygen Delivery Method Room Air Intake and Output for Last 24 Hours 08/11/17 08/12/17 08/13/17 23:59 23:59 23:59 Intake Total 240 / 910 200 / 200 Balance 240 / 610 200 / 200 Laboratory Tests Past 24 Hrs 08/12/17 08/12/17 08/12/17 22:44 22:44 22:44 WBC RBC Hgb Hct MCV MCH MCHC RDW RDW Differential Plt Count MPV Immature Gran % (Auto) Neut % (Auto) Lymph % (Auto) [place] % (Auto) Eos % (Auto) Baso % (Auto) Absolute Neuts (auto) Absolute Lymphs (auto) Total Counted Specimen Type Sample Site VBG pH VBG pO2 VBG O2 Sat (Calc) VBG O2 Content VBG Base Excess POC Mix VBG pCO2 Pt Tmp O2 Delivery Device Blood Gas Notified Whom Blood Gas Notified Time Sodium 140 Potassium 4.6 Chloride 108 H Carbon Dioxide 19.0 L Anion Gap 13 BUN 36 H Creatinine 1.79 H Estim Creat Clear Calc 22.68 Est GFR (MDRD) Af Amer 35 L Est GFR (MDRD) Non-Af 29 L BUN/Creatinine Ratio 20.1 H Glucose 129 H Lactic Acid 2.9 H Calcium 8.4 L Magnesium 2.1 08/12/17 08/13/17 08/13/17 23:35 03:40 03:40 WBC 7.8 RBC 3.82 L Hgb 11.3 L Hct 35.4 L MCV 92.7 MCH 29.6 MCHC 31.9 L RDW 14.4 RDW Differential 47.2 H Plt Count 225 MPV 10.3 Immature Gran % (Auto) 0.300 Neut % (Auto) 78.8 H Lymph % (Auto) 8.3 L [place] % (Auto) 11.0 H Eos % (Auto) 1.1 Baso % (Auto) 0.5 Absolute Neuts (auto) 6.2 Absolute Lymphs (auto) 0.65 L Total Counted Not Reportable Specimen Type KAMAR Sample Site OTHER VBG pH 7.38 VBG pO2 75 H VBG O2 Sat (Calc) 95 H VBG O2 Content 21 L VBG Base Excess -5 L POC Mix VBG pCO2 Pt Tmp 34.0 L O2 Delivery Device Room Air Blood Gas Notified Whom RN Blood Gas Notified Time 2345 Sodium 140 Potassium 4.4 Chloride 109 H Carbon Dioxide 18.0 L Anion Gap 13 BUN 37 H Creatinine 1.69 H Estim Creat Clear Calc 24.03 Est GFR (MDRD) Af Amer 37 L Est GFR (MDRD) Non-Af 31 L BUN/Creatinine Ratio 21.9 H Glucose 124 H Lactic Acid Calcium 8.4 L Magnesium 08/13/17 03:40 WBC RBC Hgb Hct MCV MCH MCHC RDW RDW Differential Plt Count MPV Immature Gran % (Auto) Neut % (Auto) Lymph % (Auto) [place] % (Auto) Eos % (Auto) Baso % (Auto) Absolute Neuts (auto) Absolute Lymphs (auto) Total Counted Specimen Type Sample Site VBG pH VBG pO2 VBG O2 Sat (Calc) VBG O2 Content VBG Base Excess POC Mix VBG pCO2 Pt Tmp O2 Delivery Device Blood Gas Notified Whom Blood Gas Notified Time Sodium Potassium Chloride Carbon Dioxide Anion Gap BUN Creatinine Estim Creat Clear Calc Est GFR (MDRD) Af Amer Est GFR (MDRD) Non-Af BUN/Creatinine Ratio Glucose Lactic Acid 1.8 Calcium Magnesium Assessment/Plan patient was seen and examined independent of nurse practitioner. Agree with the interval history and physical exam as well as assessment and plan. Patient appears confused, oriented x 2. Denies any complains. No more diarrhea. Denies chest pain, dizziness or palpitations. Telemetry shows A. fib, rate controlled. Vitals are stable. Labs show slightly improved cr; 1.69 from 1.79. Continue on IV lasix, strict I & Os. Waiting on discharge to TCU. Code Visit Inpatient E&M: 35790 Subs Hosp L2
--- NOTE | 2017-08-13 12:39 | CASEMGMT ---
SW called and left messages for TCU and [facility] regarding pt, SW will follow up on Tuesday regarding SNF referral. NETTA Matthews, LOOM INSPECTOR
[2017-08-13] MEDS: Latanoprost 0.005% 1 Bottle 1 DRP EACH EYE (22:35)
[2017-08-13] MEDS: Timolol 0.5% 5ML OPTH.BTL 1 DRP EACH EYE (22:36)
[2017-08-14] VITALS (11 sets, daily range): BP systolic 106–119; BP diastolic 58–77; PULSE 74–115; RESP 16–18; TEMP 36.6–36.9; O2SAT 94–100
[2017-08-14 06:32] LABS: Hemoglobin 10.2 g/dl (12.0-15.0); Mean Corp Hgb Conc 30.9 g/gl (32-36); Mean Corpuscular Hgb 28.9 pg (27.0-32.0); Mean Corpuscular Volume 93.5 fL (81-99); Platelet Count 201 K/mm3 (150-450); RBC Distribution Width CV 14.6 % (11.6-14.6); RBC Distribution Width SD 49.1 fl (35.1-43.9); Red Blood Count 3.53 M/mm3 (4.2-5.4); White Blood Count 5.8 K/mm3 (4.4-11.0)
[2017-08-14] MEDS: Levothyroxine 100 MCG Tablet PO (06:34)
[2017-08-14 06:41] LABS: Scan Indicated on CBC? Y/N NO
[2017-08-14 06:48] LABS: Anion Gap 11 (5-15); BUN 40 mg/dL (7-18); Calcium,Total 8.3 mg/dL (8.5-10.1); Chloride 107 mmol/L (98-107); EST Glomerular Filtration Rate 33 mL/min (>60); Est Glom Filt Rate - Afr Amer 40 mL/min (>60); Estimated Creatinine Clearance 25.38 ml/min; Glucose 80 mg/dL (74-106); Potassium 3.8 mmol/L (3.5-5.1); Sodium Level 141 mmol/L (136-145)
[2017-08-14] MEDS: APIXABAN 2.5 MG TABLET PO ×2 (10:02→22:59)
[2017-08-14] MEDS: Furosemide 40 MG/4 ML Vial IV (10:03)
[2017-08-14] MEDS: FLUoxetine 20 MG Capsule 40 MG PO (10:03)
[2017-08-14] MEDS: Metoprolol Tartrate 25 MG Tablet PO ×2 (10:03→22:59)
[2017-08-14] MEDS: Famotidine 20 MG Tablet PO (10:03)
--- NOTE | 2017-08-14 10:38 | PN_ITS ---
<Aimee Nye - Last Filed: 08/14/17 10:39> Patient Problems: Active and Suspected Problems Atrial fibrillation (Acute) Subjective: Patient seen and examined. Confused this morning. States she does not know where everyone is. Unsure where she is at and is asking where her dog is. No family at bedside. She is pleasant at this time. Denies shortness of breath , chest pain, palpitations. Denies other complaints. - Physical Exam General: Alert, Cooperative, No apparent distress HEENT: Atraumatic, PERRLA, EOMI, Normocephalic Neck: Supple, No JVD, Negative Carotid Bruits Lungs: Clear to auscultation, Normal air movement Cardiovascular: Normal S1, Normal S2, Murmur, - - a.fib, rate controlled. Abdomen: Bowel Sounds Present, Soft, Non Tender, Non-Distended Extremities: No clubbing, No cyanosis, No edema, Capillary Refill Less than 3 Seconds Skin: No rashes, No breakdown Musculoskeletal: No Tenderness to Palpation of Joints or Extremities Neurological: Cranial nerves II-XII grossly intact, Neuro grossly intact Psych/Mental Status: Normal Affect, Appropriate Vital Signs Temp Pulse Resp BP Pulse Ox 98.1 F 101 H 16 109/64 94 08/14/17 08:30 08/14/17 10:03 08/14/17 08:30 08/14/17 08:30 08/14/17 08:30 Oxygen Delivery Method Room Air Intake and Output for Last 24 Hours 08/12/17 08/13/17 08/14/17 23:59 23:59 23:59 Intake Total 240 / 910 200 / 200 360 / 360 Balance 240 / 610 200 / 200 360 / 360 Laboratory Tests Past 24 Hrs 08/14/17 08/14/17 05:40 05:40 WBC 5.8 RBC 3.53 L Hgb 10.2 L Hct 33.0 L MCV 93.5 MCH 28.9 MCHC 30.9 L RDW 14.6 RDW Differential 49.1 H Plt Count 201 MPV 10.0 Sodium 141 Potassium 3.8 Chloride 107 Carbon Dioxide 23.0 Anion Gap 11 BUN 40 H Creatinine 1.60 H Estim Creat Clear Calc 25.38 Est GFR (MDRD) Af Amer 40 L Est GFR (MDRD) Non-Af 33 L BUN/Creatinine Ratio 25.0 H Glucose 80 Calcium 8.3 L Assessment/Plan Active and Suspected Problems Atrial fibrillation (Acute) Patient is an 81-year-old female admitted 08/11/17 due to new diagnosis atrial fibrillation symptomatic with shortness of breath. She has a past medical history of colitis, hypothyroidism, depression, anxiety, TIA, left bundle branch block. 1. New diagnosis atrial fibrillation-diagnosed by PCP approximately 1 week ago. Continue metoprolol and Eliquis. Cardiology consulted. Patient had previous echocardiogram September 2012 which showed an EF of 60%. Repeat echocardiogram during admission shows an estimated ejection fraction of 30%, mild to moderate mitral valve insufficiency, moderate tricuspid valve insufficiency, RVSP estimated to be 33 mmHg. Patient underwent nuclear stress test 08/12/17 which was negative for ischemia. Possible cardiac catheterization in the future. Per cardiology, patient may be started on antiarrhythmic therapy or cardioversion in the future. Rate has continued to be controlled. 2. Acute systolic CHF-no previous diagnosis. BNP 1956. Echo with EF of 30% as noted above. Chest x-ray consistent with CHF. Continue IV Lasix. Possible cardiac catheterization in the future to rule out CAD as cause of significant decrease in EF. 3. History of colitis-Patient has not had any further diarrhea, nausea, vomiting since admission. Low suspicion for viral gastroenteritis. Patient is tolerating regular diet. Continue to monitor. EGD/colonoscopy in April 2016 showed microscopic colitis. No active bleeding. 4. Chronic normochromic normocytic anemia-hemoglobin stable. Baseline hemoglobin appears to be 8-9. Hemoglobin currently 10.2. Continue iron supplementation. 5. Elevated creatinine-appears somewhat chronic in nature. Baseline 1.1-1.3. Monitor BMP. 6. Elevated glucose-hemoglobin A1c 5.8%. 7. Hypothyroidism-continue Synthroid. TSH within normal limits. 8. Depression/anxiety-continue bupropion, fluoxetine, lorazepam regimen. Recommend tapering Ativan at discharge with eventual discontinuation. 9. Generalized weakness-PT/OT. Patient and family concerned for patient to return home alone. Physical therapy evaluation pending. 10. History of TIA 11. Altered mental status-etiology unclear. Suspect underlying dementia as patient responded well to IM Haldol. Continue to monitor. DVT prophylaxis-Eliquis. Discharge planning- Pending pre-cert. Anticipate discharge to TCU tuesday. This patient was seen by Aimee Popeye, SPACE PHYSICIST-C under the supervision of Dr. Bolse. <Claritza Boles - Last Filed: 08/14/17 13:00> - Physical Exam Vital Signs Temp Pulse Resp BP Pulse Ox 98.1 F 85 16 109/64 94 08/14/17 08:30 08/14/17 11:00 08/14/17 08:30 08/14/17 08:30 08/14/17 08:30 Oxygen Delivery Method Room Air Intake and Output for Last 24 Hours 08/12/17 08/13/17 08/14/17 23:59 23:59 23:59 Intake Total 240 / 910 200 / 200 840 / 840 Balance 240 / 610 200 / 200 840 / 840 Laboratory Tests Past 24 Hrs 08/14/17 08/14/17 05:40 05:40 WBC 5.8 RBC 3.53 L Hgb 10.2 L Hct 33.0 L MCV 93.5 MCH 28.9 MCHC 30.9 L RDW 14.6 RDW Differential 49.1 H Plt Count 201 MPV 10.0 Sodium 141 Potassium 3.8 Chloride 107 Carbon Dioxide 23.0 Anion Gap 11 BUN 40 H Creatinine 1.60 H Estim Creat Clear Calc 25.38 Est GFR (MDRD) Af Amer 40 L Est GFR (MDRD) Non-Af 33 L BUN/Creatinine Ratio 25.0 H Glucose 80 Calcium 8.3 L Assessment/Plan patient was seen and examined independent of nurse practitioner, Aimee Nye. Agree with the interval history and physical exam as well as assessment and plan.Patient appears still confused, oriented x 2. This is apparently her baseline. Denies any complains. No more diarrhea. Denies chest pain, dizziness or palpitations. Telemetry shows A. fib, rate controlled. Vitals are stable. Labs show slightly improved cr; on IV lasix, strict I & Os. We will wait for bed to discharge to TCU. Code Visit Inpatient E&M: 24244 Subs Hosp L2
[2017-08-14] MEDS: LORazepam 1 MG Tablet PO ×2 (10:42→22:59)
[2017-08-14] MEDS: Latanoprost 0.005% 1 Bottle 1 DRP EACH EYE (23:01)
[2017-08-14] MEDS: Timolol 0.5% 5ML OPTH.BTL 1 DRP EACH EYE (23:01)
[2017-08-15] VITALS (8 sets, daily range): BP systolic 106–108; BP diastolic 63–71; PULSE 79–102; RESP 18; TEMP 36.3–36.7; O2SAT 95–97
[2017-08-15] MEDS: Levothyroxine 100 MCG Tablet PO (05:46)
[2017-08-15 06:20] LABS: Hematocrit 33.4 % (37-47); Hemoglobin 10.7 g/dl (12.0-15.0); Mean Corpuscular Hgb 30.1 pg (27.0-32.0); Mean Corpuscular Volume 93.8 fL (81-99); Mean Platelet Vol. 10.4 fl (6.2-12.0); Platelet Count 210 K/mm3 (150-450); RBC Distribution Width CV 14.4 % (11.6-14.6); RBC Distribution Width SD 46.7 fl (35.1-43.9); Red Blood Count 3.56 M/mm3 (4.2-5.4); White Blood Count 5.4 K/mm3 (4.4-11.0)
[2017-08-15 06:22] LABS: Anion Gap 7 (5-15); BUN 37 mg/dL (7-18); Chloride 109 mmol/L (98-107); Creatinine, Serum 1.48 mg/dL (0.55-1.02); EST Glomerular Filtration Rate 36 mL/min (>60); Est Glom Filt Rate - Afr Amer 43 mL/min (>60); Estimated Creatinine Clearance 27.44 ml/min; Glucose 83 mg/dL (74-106); Potassium 3.8 mmol/L (3.5-5.1); Sodium Level 142 mmol/L (136-145)
[2017-08-15 06:23] LABS: Scan Indicated on CBC? Y/N NO
[2017-08-15] MEDS: FLUoxetine 20 MG Capsule 40 MG PO (09:09)
[2017-08-15] MEDS: Famotidine 20 MG Tablet PO (09:09)
[2017-08-15] MEDS: Metoprolol Tartrate 25 MG Tablet PO (09:09)
[2017-08-15] MEDS: LORazepam 1 MG Tablet PO (09:10)
[2017-08-15] MEDS: Timolol 0.5% 5ML OPTH.BTL 1 DRP EACH EYE (09:10)
[2017-08-15] MEDS: APIXABAN 2.5 MG TABLET PO (09:10)
[2017-08-15] MEDS: Furosemide 40 MG/4 ML Vial IV (09:10)
--- NOTE | 2017-08-15 09:36 | CASEMGMT ---
Addendum entered by Yuly Marcelino 08/15/17 10:12: Receive call from Jeannie at [facility] and answered her questions. She will check with the team and let SW know if they will accept her or not. Yuly FOSTER Original Note: LEYDA faxed referral information to [facility]. LEYDA will follow up with a phone call. Yuly FONG MSW
--- NOTE | 2017-08-15 10:09 | PCM.PN.CARD ---
Subjectve: The patient is awake however, she states she does not know where she is at nor does she remember what is going on. She states she is waiting to see her daughter. She does not complain at this time of any worsening chest discomfort or difficulty breathing. Objective: Vital Signs Temp Pulse Resp BP Pulse Ox 97.9 F 97 18 108/71 96 08/15/17 08:25 08/15/17 09:09 08/15/17 08:25 08/15/17 08:25 08/15/17 08:25 Oxygen Delivery Method Room Air Intake and Output for Last 24 Hours 08/13/17 08/14/17 08/15/17 23:59 23:59 23:59 Intake Total 200 / 200 1190 / 1190 240 / 240 Balance 200 / 200 1190 / 1190 240 / 240 General: Awake, No Acute Distress, Disoriented Neck: No JVD Lungs: Clear to auscultation Cardiovascular: Irregular Rhythm, Normal S1, Normal S2 Murmur Murmur: Grade 2/6, Soft, Mid Systolic, LLSB, LVOT Abdomen: Bowel Sounds Present, Soft, Non Tender Extremities: No edema 08/15/17 05:40: WBC 5.4, RBC 3.56 L, Hgb 10.7 L, Hct 33.4 L, MCV 93.8, MCH 30.1, MCHC 32.0, RDW 14.4, RDW Differential 46.7 H, Plt Count 210, MPV 10.4 08/15/17 05:40: Sodium 142, Potassium 3.8, Chloride 109 H, Carbon Dioxide 26.0, Anion Gap 7, BUN 37 H, Creatinine 1.48 H, Est GFR (MDRD) Af Amer 43 L, Est GFR (MDRD) Non-Af 36 L, BUN/Creatinine Ratio 25.0 H, Glucose 83, Calcium 8.0 L Rhythm: Atrial fibrillation; PVCs Assessment/Plan 1. Atrial fibrillation The patient now has atrial fibrillation. The exact duration is unknown although it has been demonstrated during her recent outpatient primary care evaluation. The etiology may be multifactorial. This may be related to the patient's age as well as her recent findings, based on her echocardiogram, of diminished LV systolic function. At the same time there is concern as to whether or not her diminished LV systolic function may be related to a history of underlying atrial fibrillation with tachycardia and a tachycardic induced cardiomyopathy. From a cardiac standpoint she is continuing to be monitored. Her cardiac enzymes are negative. Her echocardiogram is as previously noted. Her pharmacologic stress nuclear imaging study was reported as negative for ongoing myocardial ischemia. She has continued rate control therapy and anticoagulant therapy. 2. Abnormal ECG/left bundle branch block pattern She does have an abnormal ECG with a left bundle branch block pattern. This is not a new diagnosis for her. However based upon her ongoing concerns it is reasonable to reassess her as noted above. 3. CHF She does have the appearance of underlying CHF based upon her history, exam, and her objective studies with her BNP level. She also has been found to have an echocardiogram with diminished LV systolic function compared to her prior studies. She has initiated medical therapy with diuretics. Her breathing is somewhat improved. She will need medical management going forward. Ideally this would include agents such as beta blockers, diuretics, and afterload reducing agents, etc. 4. Cardiomyopathy He does have findings compatible with a cardiomyopathy. It is unclear whether this is atrial fibrillation/tachycardic induced or whether this is related to another non-CAD etiology or despite her pharmacologic stress nuclear imaging study results underlying CAD. As an time she will continue medical management as deemed appropriate. Ideally it may be reasonable consider, despite her pharmacologic stress nuclear imaging results, further evaluation with diagnostic cardiac catheterization. However this may be challenging with respect to her mental status changes and inability to cooperate with her medical evaluation and care. Thus she appears to be destined for continued conservative medical management. 5. Hypothyroidism Her thyroid levels have been evaluated. She will continue evaluation care as needed. 6. Anemia There is concern of her history of anemia. There is concern this is related to her gastrointestinal bleeding process. This will have to be followed with respect anticoagulant therapy. 7. Colitis His have a history of colitis. Again there is a concern whether she will tolerate anti-coagulant therapy based upon her previous history. She will need to be monitored for any obvious gastrointestinal bleeding process. This note was generated with [employer] software. It may contain incorrect words, spelling, and punctuation that were not noted in checking the note before signing.
--- NOTE | 2017-08-15 10:58 | PCM.EXTCARCO ---
- Routine Orders/Code Status Enema Type: Fleetz Enema Frequency: Daily PRN Suppository Type: Dulcolax 10mg Suppository Frequency: Daily PRN O2 Liters per Minute: 2 O2 Frequency: PRN Keep PO Greater than or Equal to (%): 90 Routine Lab Work: CBC, BMP, - - Q Week Code Status: Full Code - Therapies Physical Therapy: Eval and Treat Occupational Therapy: Eval and Treat - Problem/Diagnosis (1) Hypothyroidism Status: Chronic Current Visit: No (2) TIA (transient ischemic attack) Status: Resolved Current Visit: No (3) Stroke Status: Resolved Current Visit: No (4) Osteoarthritis of left knee Status: Chronic Current Visit: No (5) Osteoarthritis of right knee Status: Chronic Current Visit: No (6) History of colitis Status: Chronic Comment: microscopic colitis on biopsy of prev. colonoscopy Current Visit: No (7) Bleeding per rectum Status: Chronic Current Visit: No (8) Collagenous colitis Status: Chronic Current Visit: No (9) Anemia Status: Chronic Current Visit: No (10) Atrial fibrillation Status: Acute Current Visit: Yes - Allergies/Procedures Done in Hospital Allergies/Adverse Reactions: Allergies scopolamine Adverse Reaction (Verified 08/11/17 08:16) confusion Procedures: 2-D Echocardiogram, Nuclear Stress Test - Type of Care/Length of Stay Estimated LOS: Convalescent Care Less Than 30 days Type of Care Needed: Skilled Rehab Potential: Fair Prognosis: Fair - Additional Orders/Day of Discharge H&P will serve as current which was dated: 08/11/17 Day of Discharge: 08/15/17 - Follow Up Care Primary Care Physician: Geoffrey Jesus MD [Primary Care Provider] - Please follow up with your Primary Care Physician in: 1-2 Weeks Please Follow Up With: Geoffrey Mistry MD When: 1-2 Weeks
--- NOTE | 2017-08-15 11:03 | PCM.DC.SUM ---
<Aimee Nye - Last Filed: 08/15/17 11:22> Discharge Date and Diagnosis Date of Admission: 08/11/17 Date of Discharge: 08/15/17 - Primary Discharge Diagnosis Active and Suspected Problems 1. New onset atrial fibrillation 2. Acute systolic CHF 3. Altered mental status suspected secondary to underlying dementia - Secondary Discharge Diagnosis Chronic Problems Abnormal electrocardiogram (Chronic) LBBB Dyspnea (Chronic) Hypothyroidism (Chronic) Osteoarthritis of left knee (Chronic) Osteoarthritis of right knee (Chronic) History of colitis (Chronic) microscopic colitis on biopsy of prev. colonoscopy Bleeding per rectum (Chronic) Collagenous colitis (Chronic) Anemia (Chronic) Hospital Course and Treatment Imaging Results: Diagnostic Data Chest X-Ray 08/13/17 05:55 IMPRESSION: 1. Grossly stable x-ray examination of the chest, as noted. 2. Stable cardiac enlargement. The appearance of central pulmonary vascular congestion is likely augmented by crowding. 3. Central bibasilar subsegmental atelectasis and minimal pleural effusions also again noted. Electronically Signed: Agustin Izquierdo MD at 9:21 EST , Service support , Dr. Mistry- Cardiology Operations: None Procedures: 2-D Echocardiogram, Stress test Summary of Care Provided: Patient is an 81-year-old female admitted 08/11/17 due to new diagnosis atrial fibrillation symptomatic with shortness of breath. She has a past medical history of colitis, hypothyroidism, depression, anxiety, TIA, left bundle branch block. 1. New onset atrial fibrillation-diagnosed by PCP 1 week prior to admission. Cardiology consulted. Patient had previous echocardiogram September 2012 which showed an EF of 60%. Repeat echocardiogram during admission shows an estimated ejection fraction of 30%, mild to moderate mitral valve insufficiency, moderate tricuspid valve insufficiency, RVSP estimated to be 33 mmHg. Patient underwent nuclear stress test 08/12/17 which was negative for ischemia. Cardiac catheterization was discussed given significant decrease in ejection fraction however due to patient's altered mental status, she will continue conservative medical management. Heart rate has been well controlled. She will continue metoprolol, Eliquis at discharge. She will follow up with Dr. Mistry as outpatient to determine further treatment options. Patient reported an intolerance to blood thinners in the past due to reported diarrhea. She has had no GI symptoms since admission. 2. Acute systolic CHF-no previous diagnosis. BNP on admission 195. Echo with EF of 30% as noted above. Chest x-ray consistent with CHF. Patient received IV Lasix during admission. She will continue oral Lasix 40 mg daily at discharge. She was started on low-dose lisinopril, 2.5 mg daily. Continue beta-daniel. 3. History of colitis-Patient has not had any further diarrhea, nausea, vomiting since admission. No further suspicion for viral gastroenteritis. EGD/colonoscopy in April 2016 showed microscopic colitis. No active bleeding. 4. Chronic normochromic normocytic anemia-hemoglobin stable. Baseline hemoglobin appears to be 8-9. Hemoglobin 10.7 at discharge. Continue iron supplementation. 5. Elevated creatinine-appears somewhat chronic in nature. Baseline 1.1-1.3. Monitor BMP weekly at SNF. 6. Elevated glucose-hemoglobin A1c 5.8%. 7. Hypothyroidism-continue Synthroid. TSH within normal limits. 8. Depression/anxiety-continue bupropion, fluoxetine, lorazepam regimen. 9. Generalized weakness-SNF at [place]. Continue PT/OT. 10. History of TIA 11. Altered mental status-etiology unclear. Suspect underlying dementia. SNF at [place]. General: Alert, Cooperative, No apparent distress HEENT: Atraumatic, PERRLA, EOMI, Normocephalic Neck: Supple, No JVD, Negative Carotid Bruits Lungs: Clear to auscultation, Normal air movement Cardiovascular: Normal S1, Normal S2, Murmur, - - a.fib, rate controlled. Abdomen: Bowel Sounds Present, Soft, Non Tender, Non-Distended Extremities: No clubbing, No cyanosis, No edema, Capillary Refill Less than 3 Seconds Skin: No rashes, No breakdown Musculoskeletal: No Tenderness to Palpation of Joints or Extremities Neurological: Cranial nerves II-XII grossly intact, Neuro grossly intact Psych/Mental Status: Normal Affect, Appropriate Patient seen and examined prior to discharge. Physical assessment as noted above. Patient is stable for discharge to SNF with recommendations as noted above. This patient was seen by CINTHYA Benjamin under the supervision of Dr. Aldana. Home Medications: Medications to take at Discharge Cholecalciferol (VIT D3) [Vitamin D3] 4,000 unit PO DAILY 03/26/16 Fluoxetine [Prozac] 40 mg PO DAILY 03/26/16 Latanoprost 0.005% [Xalatan Opthalmic] 1 drop EACH EYE QHS 03/26/16 Timolol 0.5% [Timoptic] 1 drop EACH EYE BID 03/26/16 Levothyroxine [Synthroid] 100 mcg PO DAILY 04/26/16 Bisacodyl [Dulcolax] 10 mg RECTAL DAILY PRN #30 suppos. 06/07/16 Potassium Chloride [K-Dur] 10 meq PO DAILYCM #30 tablet 06/07/16 Apixaban [Eliquis] 2.5 mg PO BID 08/11/17 Bupropion HCl [Bupropion HCl Sr] 150 mg PO BID 08/11/17 Iron Polysaccharide Complex [Ferrex 150] 325 mg PO DAILYCM 08/11/17 Levocetirizine Dihydrochloride [Xyzal] 5 mg PO DAILY PRN PRN 08/11/17 Metoprolol Tartrate [Lopressor (beta daniel)] 25 mg PO BID 08/11/17 Famotidine [Pepcid] 20 mg PO DAILY tablet 08/15/17 Furosemide [Lasix] 40 mg PO DAILY #30 tablet 08/15/17 Lisinopril [Zestril] 2.5 mg PO DAILY #30 tablet 08/15/17 Lorazepam [Ativan] 1.5 mg PO BID PRN PRN #15 tab 08/15/17 Following Prescrptions Were Given to Patient: Furosemide [Lasix] 40 mg PO DAILY #30 tablet Lisinopril [Zestril] 2.5 mg PO DAILY #30 tablet Lorazepam [Ativan] 1.5 mg PO BID PRN PRN #15 tab PRN Reason: Anxiety Primary Care Physician: Geoffrey Jesus MD [Primary Care Provider] - Please follow up with your Primary Care Physician in: 1-2 Weeks Please Follow Up With: Geoffrey Mistry MD When: 1-2 Weeks Disposition: Nursing Home facility Minutes spent on discharge:: 35 Patient Condition:: Stable Meaningful Use Info Meaningful Use Diagnoses (Choose all that apply): CHF - CHF MARIA GUADALUPE/ARB ordered at discharge?: Yes Documented LVEF (%): 30 <Tevin Aldana - Last Filed: 08/15/17 16:41> Discharge Date and Diagnosis - Secondary Discharge Diagnosis Chronic Problems Abnormal electrocardiogram (Chronic) LBBB Dyspnea (Chronic) Hypothyroidism (Chronic) Osteoarthritis of left knee (Chronic) Osteoarthritis of right knee (Chronic) History of colitis (Chronic) microscopic colitis on biopsy of prev. colonoscopy Bleeding per rectum (Chronic) Collagenous colitis (Chronic) Anemia (Chronic) Hospital Course and Treatment Operations: None Procedures: 2-D Echocardiogram, Stress test Summary of Care Provided: Patient seen and examined independently. Agree with the above note by the nurse practitioner. The patient is a 81 year old F resents with atrial for ablation and is new onset. Patient was seen by cardiology. Patient was noted to have an reduced ejection fraction of down to 30% from 60% in 2013. Patient underwent a nuclear stress test that was negative for any ischemic process. And it was decided not to proceed with a left heart catheterization given the patient's change in mental status and possible dementia and also the fact the patient had a normal stress test. Patient's heart rate has been controlled on metoprolol and patient is anticoagulated with Eliquis. Patient follow-up cardiology as outpatient. [] Discharge Diet: Low fat/ Low Cholesterol Discharge Activity: Return to Normal Activity Minutes spent on discharge:: 35 Patient Condition:: Stable Meaningful Use Info Meaningful Use Diagnoses (Choose all that apply): CHF - CHF MARIA GUADALUPE/ARB ordered at discharge?: Yes Documented LVEF (%): 30 Code Visit Inpatient E&M: 69192 Disch Hosp
--- NOTE | 2017-08-15 11:20 | DS.PCM_ITS ---
<Aimee Nye - Last Filed: 08/15/17 11:22> Discharge Date and Diagnosis Date of Admission: 08/11/17 Date of Discharge: 08/15/17 - Primary Discharge Diagnosis Active and Suspected Problems 1. New onset atrial fibrillation 2. Acute systolic CHF 3. Altered mental status suspected secondary to underlying dementia - Secondary Discharge Diagnosis Chronic Problems Abnormal electrocardiogram (Chronic) LBBB Dyspnea (Chronic) Hypothyroidism (Chronic) Osteoarthritis of left knee (Chronic) Osteoarthritis of right knee (Chronic) History of colitis (Chronic) microscopic colitis on biopsy of prev. colonoscopy Bleeding per rectum (Chronic) Collagenous colitis (Chronic) Anemia (Chronic) Hospital Course and Treatment Imaging Results: Diagnostic Data Chest X-Ray 08/13/17 05:55 IMPRESSION: 1. Grossly stable x-ray examination of the chest, as noted. 2. Stable cardiac enlargement. The appearance of central pulmonary vascular congestion is likely augmented by crowding. 3. Central bibasilar subsegmental atelectasis and minimal pleural effusions also again noted. Electronically Signed: Agustin Izquierdo MD at 9:21 EST , Service support , Dr. Mistry- Cardiology Operations: None Procedures: 2-D Echocardiogram, Stress test Summary of Care Provided: Patient is an 81-year-old female admitted 08/11/17 due to new diagnosis atrial fibrillation symptomatic with shortness of breath. She has a past medical history of colitis, hypothyroidism, depression, anxiety, TIA, left bundle branch block. 1. New onset atrial fibrillation-diagnosed by PCP 1 week prior to admission. Cardiology consulted. Patient had previous echocardiogram September 2012 which showed an EF of 60%. Repeat echocardiogram during admission shows an estimated ejection fraction of 30%, mild to moderate mitral valve insufficiency, moderate tricuspid valve insufficiency, RVSP estimated to be 33 mmHg. Patient underwent nuclear stress test 08/12/17 which was negative for ischemia. Cardiac catheterization was discussed given significant decrease in ejection fraction however due to patient's altered mental status, she will continue conservative medical management. Heart rate has been well controlled. She will continue metoprolol, Eliquis at discharge. She will follow up with Dr. Mistry as outpatient to determine further treatment options. Patient reported an intolerance to blood thinners in the past due to reported diarrhea. She has had no GI symptoms since admission. 2. Acute systolic CHF-no previous diagnosis. BNP on admission 195. Echo with EF of 30% as noted above. Chest x-ray consistent with CHF. Patient received IV Lasix during admission. She will continue oral Lasix 40 mg daily at discharge. She was started on low-dose lisinopril, 2.5 mg daily. Continue beta-daniel. 3. History of colitis-Patient has not had any further diarrhea, nausea, vomiting since admission. No further suspicion for viral gastroenteritis. EGD/ colonoscopy in April 2016 showed microscopic colitis. No active bleeding. 4. Chronic normochromic normocytic anemia-hemoglobin stable. Baseline hemoglobin appears to be 8-9. Hemoglobin 10.7 at discharge. Continue iron supplementation. 5. Elevated creatinine-appears somewhat chronic in nature. Baseline 1.1-1.3. Monitor BMP weekly at SNF. 6. Elevated glucose-hemoglobin A1c 5.8%. 7. Hypothyroidism-continue Synthroid. TSH within normal limits. 8. Depression/anxiety-continue bupropion, fluoxetine, lorazepam regimen. 9. Generalized weakness-[facility]NF at [place]. Continue PT/OT. 10. History of TIA 11. Altered mental status-etiology unclear. Suspect underlying dementia. SNF at [place]. General: Alert, Cooperative, No apparent distress HEENT: Atraumatic, PERRLA, EOMI, Normocephalic Neck: Supple, No JVD, Negative Carotid Bruits Lungs: Clear to auscultation, Normal air movement Cardiovascular: Normal S1, Normal S2, Murmur, - - a.fib, rate controlled. Abdomen: Bowel Sounds Present, Soft, Non Tender, Non-Distended Extremities: No clubbing, No cyanosis, No edema, Capillary Refill Less than 3 Seconds Skin: No rashes, No breakdown Musculoskeletal: No Tenderness to Palpation of Joints or Extremities Neurological: Cranial nerves II-XII grossly intact, Neuro grossly intact Psych/Mental Status: Normal Affect, Appropriate Patient seen and examined prior to discharge. Physical assessment as noted above. Patient is stable for discharge to SNF with recommendations as noted above. This patient was seen by CINTHYA Benjamin under the supervision of Dr. Aldana. Home Medications: Medications to take at Discharge Cholecalciferol (VIT D3) [Vitamin D3] 4,000 unit PO DAILY 03/26/16 Fluoxetine [Prozac] 40 mg PO DAILY 03/26/16 Latanoprost 0.005% [Xalatan Opthalmic] 1 drop EACH EYE QHS 03/26/16 Timolol 0.5% [Timoptic] 1 drop EACH EYE BID 03/26/16 Levothyroxine [Synthroid] 100 mcg PO DAILY 04/26/16 Bisacodyl [Dulcolax] 10 mg RECTAL DAILY PRN #30 suppos. 06/07/16 Potassium Chloride [K-Dur] 10 meq PO DAILYCM #30 tablet 06/07/16 Apixaban [Eliquis] 2.5 mg PO BID 08/11/17 Bupropion HCl [Bupropion HCl Sr] 150 mg PO BID 08/11/17 Iron Polysaccharide Complex [Ferrex 150] 325 mg PO DAILYCM 08/11/17 Levocetirizine Dihydrochloride [Xyzal] 5 mg PO DAILY PRN PRN 08/11/17 Metoprolol Tartrate [Lopressor (beta daniel)] 25 mg PO BID 08/11/17 Famotidine [Pepcid] 20 mg PO DAILY tablet 08/15/17 Furosemide [Lasix] 40 mg PO DAILY #30 tablet 08/15/17 Lisinopril [Zestril] 2.5 mg PO DAILY #30 tablet 08/15/17 Lorazepam [Ativan] 1.5 mg PO BID PRN PRN #15 tab 08/15/17 Following Prescrptions Were Given to Patient: Furosemide [Lasix] 40 mg PO DAILY #30 tablet Lisinopril [Zestril] 2.5 mg PO DAILY #30 tablet Lorazepam [Ativan] 1.5 mg PO BID PRN PRN #15 tab PRN Reason: Anxiety Primary Care Physician: Geoffrey Jesus MD [Primary Care Provider] - Please follow up with your Primary Care Physician in: 1-2 Weeks Please Follow Up With: Geoffrey Mistry MD When: 1-2 Weeks Disposition: [facility] facility Minutes spent on discharge:: 35 Patient Condition:: Stable Meaningful Use Info Meaningful Use Diagnoses (Choose all that apply): CHF - CHF MARIA GUADALUPE/ARB ordered at discharge?: Yes Documented LVEF (%): 30 <Tevin Aldana - Last Filed: 08/15/17 16:41> Discharge Date and Diagnosis - Secondary Discharge Diagnosis Chronic Problems Abnormal electrocardiogram (Chronic) LBBB Dyspnea (Chronic) Hypothyroidism (Chronic) Osteoarthritis of left knee (Chronic) Osteoarthritis of right knee (Chronic) History of colitis (Chronic) microscopic colitis on biopsy of prev. colonoscopy Bleeding per rectum (Chronic) Collagenous colitis (Chronic) Anemia (Chronic) Hospital Course and Treatment Operations: None Procedures: 2-D Echocardiogram, Stress test Summary of Care Provided: Patient seen and examined independently. Agree with the above note by the nurse practitioner. The patient is a 81 year old F resents with atrial for ablation and is new onset. Patient was seen by cardiology. Patient was noted to have an reduced ejection fraction of down to 30% from 60% in 2013. Patient underwent a nuclear stress test that was negative for any ischemic process. And it was decided not to proceed with a left heart catheterization given the patient's change in mental status and possible dementia and also the fact the patient had a normal stress test. Patient's heart rate has been controlled on metoprolol and patient is anticoagulated with Eliquis. Patient follow-up cardiology as outpatient. [] Discharge Diet: Low fat/ Low Cholesterol Discharge Activity: Return to Normal Activity Minutes spent on discharge:: 35 Patient Condition:: Stable Meaningful Use Info Meaningful Use Diagnoses (Choose all that apply): CHF - CHF MARIA GUADALUPE/ARB ordered at discharge?: Yes Documented LVEF (%): 30 Code Visit Inpatient E&M: [id number] Disch Hosp
--- NOTE | 2017-08-15 15:17 | NURSING ---
Called report to FARIDA Boyd at [facility] at this time.
== END 2017-08-15 16:13 | disposition skilled nursing facility (03) | DRG 308 ==
LOC: ED 10:05 → PCU 10:08
PROVIDERS: Family Medicine; Internal Medicine Cardiovascular Disease; Nurse Practitioner Family; Admitting Provider Internal Medicine; Emergency Provider Emergency Medicine; Family Provider Family Medicine; PCP Family Medicine
DX: I48.91 Unspecified atrial fibrillation (principal); I50.21 Acute systolic (congestive) heart failure; D64.9 Anemia, unspecified; I42.9 Cardiomyopathy, unspecified; F03.90 Unspecified dementia, unspecified severity, without behavioral disturbance, psychotic disturbance, mood disturbance, and anxiety; I44.7 Left bundle-branch block, unspecified; E03.9 Hypothyroidism, unspecified; K52.831 Collagenous colitis; F32.9 Major depressive disorder, single episode, unspecified; F41.9 Anxiety disorder, unspecified; R53.1 Weakness; Z86.73 Personal history of transient ischemic attack (TIA), and cerebral infarction without residual deficits; R41.82 Altered mental status, unspecified; R73.9 Hyperglycemia, unspecified; R79.89 Other specified abnormal findings of blood chemistry
CPT/HCPCS: 36415; 71045; 78452; 80048; 82803; 83036; 83605; 83735; 83880; 84443; 84484; 85025; 85027; 85610; 85730; 93005; 93017; 93306; 97110; 97162; 97166; 97530; 99285; A9500; J7030; A4216; J1940; J2405; J2785; J3490

== ENCOUNTER 2017-09-26 03:24 | Emergency (ER) | payer MEDICARE, OTHER, SELFPAY ==
[2017-09-26 03:26] VITALS: BMI 23.3
--- NOTE | 2017-09-26 03:33 | ED.RN ---
see code charting documentation.
--- NOTE | 2017-09-26 04:11 | ED.VISSUMM ---
- ER Visit Summary Date of Service: 09/26/17 Chief Complaint: [] Cardiac arrest History of Present Illness: The patient is a 82 F [] presents via EMS in cardiac arrest with full cardiopulmonary resuscitative measures in progress. EMS reports the cardiac arrest was unwitnessed with unknown downtime. Prehospital report included that her extremities were cold but her thoracic/abdominal cavity was still warm. Physical Examination: [] Obtunded female in cardiac arrest. CPR in progress during examination. Pupils fixed and dilated. Absent pulse on pulse checks. No spontaneous respirations. Test Results: [] None. Emergency Department Course and Treatment: [] CPR was continued by emergency department physician and staff. Patient was immediately intubated on one attempt by the emergency department physician with good color change on the EZ cap. Several rounds of CPR performed with epinephrine, bicarbonate and an amp of D50 being provided during the resuscitation. Patient was in a non-shockable rhythm on all pulse checks. Resuscitative efforts were discontinued after the completion of several rounds of CPR. Treatment Plan: [] Patient . Disposition: [] . Impression: [] Cardiac arrest Endotracheal intubation by ED physician Critical care time 30 minutes This note was generated with [employer] dictation software. It may contain incorrect words, spelling, and punctuation that were not noted in review of the chart prior to signing ED Disposition - Plan for ED Patient: Chief Complaint: CPR Referrals: Geoffrey Jesus MD [Primary Care Provider] -
--- NOTE | 2017-09-26 04:15 | ED.DCSUM_ITS ---
- ER Visit Summary Date of Service: 09/26/17 Chief Complaint: [] Cardiac arrest History of Present Illness: The patient is a 82 F [] presents via EMS in cardiac arrest with full cardiopulmonary resuscitative measures in progress. EMS reports the cardiac arrest was unwitnessed with unknown downtime. Prehospital report included that her extremities were cold but her thoracic/ abdominal cavity was still warm. Physical Examination: [] Obtunded female in cardiac arrest. CPR in progress during examination. Pupils fixed and dilated. Absent pulse on pulse checks. No spontaneous respirations. Test Results: [] None. Emergency Department Course and Treatment: [] CPR was continued by emergency department physician and staff. Patient was immediately intubated on one attempt by the emergency department physician with good color change on the EZ cap. Several rounds of CPR performed with epinephrine, bicarbonate and an amp of D50 being provided during the resuscitation. Patient was in a non-shockable rhythm on all pulse checks. Resuscitative efforts were discontinued after the completion of several rounds of CPR. Treatment Plan: [] Patient . Disposition: [] . Impression: [] Cardiac arrest Endotracheal intubation by ED physician Critical care time 30 minutes This note was generated with [employer] dictation software. It may contain incorrect words, spelling, and punctuation that were not noted in review of the chart prior to signing ED Disposition - Plan for ED Patient: Chief Complaint: CPR Referrals: Geoffrey Jesus MD [Primary Care Provider] -
--- NOTE | 2017-09-26 06:16 | ED.RN ---
PT TO HOME VIA ED [facility] [place] [facility]
[2017-09-26 07:16] LABS: Bedside Glucose < 10 mg/dL (70-110)
[2017-09-26 07:16] LABS: Bedside Glucose < 10 mg/dL (70-110)
== END 2017-09-26 06:17 ==
PROVIDERS: Emergency Provider Emergency Medicine; Family Provider Family Medicine; PCP Family Medicine
DX: I46.9 Cardiac arrest, cause unspecified (principal); Z79.01 Long term (current) use of anticoagulants; Z79.899 Other long term (current) drug therapy
CPT/HCPCS: 31500; 82962; 92950; 99281; J7030; A4216